=== PATIENT | female | born 1940 | race Caucasian/White ===

== ENCOUNTER 2023-06-07 17:30 | Outpatient (CLI) | payer MEDICARE, BC, SELFPAY | END 2023-06-07 17:31 | disposition home or self-care (01) | LOC: AMB 06-08 09:36 | PROVIDERS: PCP Family Medicine; Visit Provider Family Medicine | DX: R33.9 Retention of urine, unspecified (principal) | CPT/HCPCS: A0425; A0427 ==

== ENCOUNTER 2023-06-07 17:53 | Emergency (ER) | payer MEDICARE, BC, SELFPAY ==
[2023-06-07] VITALS (14 sets, daily range): BP systolic 138–177; BP diastolic 79–127; PULSE 53–99; RESP 16; TEMP 36.7; O2SAT 94–100; BMI 31.6
--- NOTE | 2023-06-07 18:07 | ED.GENADULT ---
HPI - General Adult General Time Seen by Provider: 18:07 Date Seen: 06/07/23 Chief complaint: Urogenital Problems, Female Stated complaint: weak Time Seen by Provider: 06/07/23 17:58 Source: patient, family, EMS, RN notes reviewed and old records reviewed Mode of arrival: EMS Limitations: no limitations History of Present Illness HPI narrative: 83-year-old female who presents today with urinary concerns. Patient notes a couple weeks ago she developed some dysuria, called the clinic and was prescribed Keflex, no urinalysis was done at that time. She has finished her course of antibiotics and now and feels like she can not urinate. Does have sensation of needing to urinate but unable to void. She denies nausea, vomiting, fever, chills. Feels that her abdomen is little distended. No flank pain. Has been having loose stools. Related Data Home Medications Medication Instructions Recorded Confirmed atorvastatin 20 mg tablet 20 mg PO DAILY 11/30/22 06/07/23 metoprolol tartrate 50 mg tablet 50 mg PO BID 11/30/22 06/07/23 omeprazole 20 mg capsule,delayed 20 mg PO DAILY 11/30/22 06/07/23 release oxybutynin chloride 5 mg tablet 5 mg PO BID 11/30/22 06/07/23 Allergies Allergy/AdvReac Type Severity Reaction Status Date / Time No Known Drug Allergies Allergy Verified 06/07/23 18:05 [facility] Medical History (Updated 06/07/23 @ 21:03 by Clarence Bhatti MD) [place] ?L84 - Corns and callosities (ICD-10) Skin infection ?L08.9 - Local infection of the skin and subcutaneous tissue, unspecified (ICD-10) Exam Narrative: Exam Narrative: General: Well-developed and well-nourished, no acute distress Head: Atraumatic and normocephalic Eyes: Pupils are equal reactive, extraocular motions intact, conjunctiva clear ENT: External nose and ears are normal, posterior pharynx without erythema or exudate Neck: No midline cervical tenderness, full spontaneous range of motion the neck, trachea midline, no adenopathy Heart: Regular rate and rhythm no murmurs or thrills Lungs: Clear to auscultation bilaterally without wheezes or crackles Abdomen: Soft, nontender, mildly distended with palpable mass just below the umbilicus Musculoskeletal: No tenderness, deformity, or edema Neurologic: Awake, alert, and oriented x3, no gross focal neurologic deficits, cranial nerves intact as tested Psych: Mood and affect are appropriate Skin: No rashes Const: Vital Signs, click to edit/add: Vital Signs - 24 hr 06/07/23 18:02 06/07/23 20:00 06/07/23 20:43 Temperature 98.0 F Pulse Rate 55 L Pulse Rate [Left P ulse Oximeter] 68 Respiratory Rate 16 Blood Pressure Blood Pressure [Le ft Upper Arm] 138/90 H 150/97 H Pulse Oximetry 94 99 Oxygen Delivery Me thod Room Air 06/07/23 21:00 06/07/23 21:02 06/07/23 21:03 Temperature Pulse Rate 71 53 L 56 L Pulse Rate [Left P ulse Oximeter] Respiratory Rate Blood Pressure 177/79 H Blood Pressure [Le ft Upper Arm] Pulse Oximetry 100 100 100 Oxygen Delivery Me thod 06/07/23 21:30 06/07/23 21:31 06/07/23 22:00 Temperature Pulse Rate 56 L 60 79 Pulse Rate [Left P ulse Oximeter] Respiratory Rate Blood Pressure 173/92 H Blood Pressure [Le ft Upper Arm] Pulse Oximetry 100 99 97 Oxygen Delivery Me thod 06/07/23 22:01 06/07/23 22:07 Temperature Pulse Rate 94 69 Pulse Rate [Left P ulse Oximeter] Respiratory Rate Blood Pressure 164/127 H 163/88 H Blood Pressure [Le ft Upper Arm] Pulse Oximetry 98 95 Oxygen Delivery Me thod Course Course ED Course: Patient seen examined, prior records are reviewed. Patient presents today with concern for decreased urine output. Recently completed Keflex for urinary infection and feels like she can get better. On exam here, afebrile with normal vital signs, no hypotension, tachycardia, or fever to suggest sepsis or severe dehydration. Appears comfortable but does have sensation of bladder fullness and on palpation does have what feels like a palpable bladder almost at the umbilicus. Bedside bladder scan and 102 mL, however based on physical exam and patient description of symptoms, Nazario catheter will be placed. Patient says she is having loose stools and no sensation of rectal fullness to suggest bowel obstruction or fecal impaction. If catheter placement does not relieve symptoms or as minimal urine output and palpable masses still present, CT scan will be ordered. Basic metabolic panel ordered due to concern for possible bladder outlet obstruction and obstructive nephropathy. Reevaluation(s) Time of Reevaluation #1: 19:25 Reevaluation #1: Labs ordered and independently interpreted by me with normal CBC, normal creatinine, urinalysis not consistent with infection. There is trace blood but there was difficulty with catheter insertion and this may be from mild trauma. Unable to insert urinary catheter however patient did void during attempt. CT scan is ordered to evaluate for abdominal mass as well as urinary retention. Time of Reevaluation #2: 20:55 Reevaluation #2: CT abdomen and pelvis and a bili interpreted by me demonstrates large hiatal hernia, numerous stones in the gallbladder, markedly distended bladder without hydronephrosis. Will re-attempt catheter and if unable to pass, plan to transfer for catheter placement. Time of Reevaluation #3: 22:21 Reevaluation #3: Difficult catheter placement but this was successful and patient had a little over 800 mL urine out, previously palpated suprapubic mass is gone. Patient presents with acute urinary retention and recent treatment for urinary tract infection with no urinalysis or urine culture done at that time. Urinalysis here demonstrates small amount of blood and few squamous cells but generally negative, culture will be ordered but would not restart antibiotics based on this sample. Patient admits to urinary frequency. I wonder if she has a component of chronic retention which gives her symptoms. She should follow-up with urology for further evaluation and treatment including postvoid residual and possible cystoscopy. She will follow-up with her primary care doctor next week to have the catheter removed. Vital Signs Vital signs: Initial Vital Signs Temperature 98.0 F 06/07/23 18:02 Temperature Source Temporal Artery Scan 06/07/23 18:02 Pulse Rate 68 06/07/23 18:02 Respiratory Rate 16 06/07/23 18:02 Blood Pressure 138/90 H 06/07/23 18:02 Blood Pressure Mean 106 H 06/07/23 18:02 Blood Pressure Position Sitting 06/07/23 18:02 Pulse Oximetry 94 06/07/23 18:02 Oxygen Delivery Method Room Air 06/07/23 18:02 Vital Signs Temperature 98.0 F 06/07/23 18:02 Pulse Rate 68 06/07/23 18:02 Respiratory Rate 16 06/07/23 18:02 Blood Pressure 138/90 H 06/07/23 18:02 Pulse Oximetry 94 06/07/23 18:02 Oxygen Delivery Method Room Air 06/07/23 18:02 Temperature 98.0 F 06/07/23 18:02 Pulse Rate 69 06/07/23 22:07 Respiratory Rate 16 06/07/23 18:02 Blood Pressure 163/88 H 06/07/23 22:07 Pulse Oximetry 95 06/07/23 22:07 Oxygen Delivery Method Room Air 06/07/23 18:02 Medical Decision Making Lab Data Labs: Lab Results 06/07/23 06/07/23 Range/Units 18:21 18:25 WBC 4.37 L (4.50-11.00) K/uL RBC 4.48 (4.00-5.20) m/uL Hgb 13.2 (12.0-16.0) gm/dL Hct 41.6 (33.0-51.0) % MCV 93 (80-100) fL MCH 30 (26-34) pg MCHC 32 (32-36) gm/dL RDW Coeff of Meir 13.9 (11.5-15.5) % Plt Count 251 (140-440) K/uL Neut % (Auto) 49.9 (42.0-72.0) % Lymph % (Auto) 33.4 (20-44) % [place] % (Auto) 13.5 H (0.0-11.0) % Eos % (Auto) 2.3 (0.0-7.0) % Baso % (Auto) 0.7 (0.0-3.0) % Neut # (Auto) 2.20 (1.7-7.0) K/uL Lymph # (Auto) 1.50 (0.90-2.90) K/uL [place] # (Auto) 0.60 (0.00-0.90) K/UL Eos # (Auto) 0.10 (0.00-0.50) K/uL Baso # (Auto) 0.00 (0.00-0.30) K/uL Abs Immat Gran (auto) 0.00 (0.00-0.30) K/uL Imm/Tot Granulo (auto) 0.2 % Sodium 141 (135-149) mmol/L Potassium 3.5 L (3.6-5.1) mmol/L Chloride 109 (96-114) mmol/L Carbon Dioxide 20 (20-32) mmol/L Anion Gap 12 (7-15) mEq/L BUN 20 (7-30) mg/dL Creatinine 1.2 (0.5-1.5) mg/dL Estimated Creat Clear 26.41 Estimated GFR 45 ml/min Glucose 125 H (60-115) mg/dL Calcium 8.6 (8.4-10.6) mg/dL Magnesium 2.0 (1.5-2.6) mg/dL Urine Color Yellow (Yellow) Urine Appearance Clear (Clear) Urine pH 5.5 (5.0-8.5) Ur Specific [place] 1.010 (1.000-1.030) Urine Protein Negative (Negative) Urine Glucose (UA) Negative (Negative) Urine Ketones Negative (Negative) Urine Blood 2+ A (Negative) Urine Nitrite Negative (Negative) Urine Bilirubin Negative (Negative) Urine Urobilinogen 0.2 (0.2-1.0) Ur Leukocyte Esterase Negative (Negative) Urine RBC 10-25 A (0-2) Urine WBC 2-5 (0-5) Ur Squamous Epith Cells Few (None-Few) Urine Bacteria Few A (None) Discharge Plan Discharge Clinical Impression: Acute urinary retention Patient Disposition: Home, Self-Care Condition: Stable Instructions: Nazario Catheter Placement and Care (ED), Acute Urinary Retention in Women (ED) Additional Instructions: Your urine test today does not demonstrate signs of infection. A urine culture will be done to confirm this and you will be called if this does show bacteria. The catheter that was placed today should be removed by your primary care provider next week. With your acute urinary retention today as well as your reported urinary frequency as an ongoing issue, you may not be completely emptying the bladder when you go to the bathroom. Follow-up with urology for further evaluation, discussed this with her primary care provider as well as she may be able to do more testing prior to seeing the urologist. [facility] ([place] and other [facility] [phone]; [place] [phone]; [place] [phone]) Prescriptions: No Action oxybutynin chloride 5 mg tablet 5 mg PO BID omeprazole 20 mg capsule,delayed release(DR/EC) 20 mg PO DAILY metoprolol tartrate 50 mg tablet 50 mg PO BID atorvastatin 20 mg tablet 20 mg PO DAILY Follow Up/Referrals: Lorena New MD [Primary Care Provider] - Stand Alone Forms: [employer] Info Instructions
[2023-06-07 18:33] LABS: Basophils Percent Auto 0.7 % (0.0-3.0); Eosinophils Percent Auto 2.3 % (0.0-7.0); Hematocrit 41.6 % (33.0-51.0); Hemoglobin* 13.2 gm/dL (12.0-16.0); Immature Granulocytes Pct Auto 0.2 %; Lymphocytes Percent Auto 33.4 % (20-44); Mean Corpuscular HGB Conc 32 gm/dL (32-36); Mean Corpuscular Hemoglobin 30 pg (26-34); Mean Corpuscular Volume 93 fL (80-100); Monocytes Percent Auto 13.5 % (0.0-11.0); Neutrophils Percent Auto 49.9 % (42.0-72.0); Platelet Count* 251 K/uL (140-440); RDW Coefficient of Variation % 13.9 % (11.5-15.5); Red Blood Count 4.48 m/uL (4.00-5.20); White Blood Count* 4.37 K/uL (4.50-11.00)
[2023-06-07 18:38] LABS: Slide Review Reflex No
[2023-06-07 18:46] LABS: Chloride* 109 mmol/L (96-114); Potassium* 3.5 mmol/L (3.6-5.1); Sodium* 141 mmol/L (135-149)
[2023-06-07 18:49] LABS: Anion Gap 12 mEq/L (7-15); Blood Urea Nitrogen* 20 mg/dL (7-30); Calcium* 8.6 mg/dL (8.4-10.6); Carbon Dioxide* 20 mmol/L (20-32); Creatinine* 1.2 mg/dL (0.5-1.5); Est. Creatinine Clearance* 26.41; Estimated Glomerular Filt Rate 45 ml/min; Glucose* 125 mg/dL (60-115)
--- NOTE | 2023-06-07 19:01 | CRLHL7_ITS ---
For Patients: As a result of the Century Cures Act, medical imaging exams and procedure reports are released immediately into your electronic medical record. You may view this report before your referring provider. If you have questions, please contact your health care provider. INDICATION: Lower abdominal pain. TECHNIQUE: CT abdomen and pelvis acquired with 79 cc Isovue 370 IV contrast. COMPARISON: None. FINDINGS: Lower chest: Large hiatal hernia. Liver: Unremarkable. Normal in size and attenuation. No suspicious masses. Gallbladder and bile ducts: Numerous small gallbladder stones. No sign of inflammation and no biliary dilatation. Pancreas: Unremarkable. No mass or inflammation. Spleen: Unremarkable. Normal in size. No masses. Adrenal glands: Unremarkable. No nodules. Kidneys: Bilateral atrophy. Few benign-appearing cysts. No hydronephrosis. GI tract: Unremarkable. Normal in caliber. No sign of mass or inflammation. Normal appendix. Vasculature: Abdominal aorta is normal in caliber. Mesenteric arteries are patent. Lymph nodes: No lymphadenopathy. Peritoneum/Abdominal Wall: Unremarkable. No sign of mass or infiltration. No free air or significant free fluid. Pelvis: Moderately distended urinary bladder. Calcified fibroid is in the uterus. Bones: Unremarkable for age. IMPRESSION: 1. Unremarkable GI tract. 2. Calcified uterine fibroid. 3. Moderately distended urinary bladder. 4. No other acute or specific finding to explain lower abdominal pain. Please note that all CT scans at this facility use dose modulation, iterative reconstruction, and/or weight-based dosing when appropriate to reduce radiation dose to as low as reasonably achievable. Dictated by Joel Huerta MD @ 06/07/2023 9:43:07 PM (Electronically Signed)
[2023-06-07 19:19] LABS: Appearance Urine Clear (Clear); Bilirubin Urine Negative (Negative); Blood Urine 2+ (Negative); Color Urine Yellow (Yellow); Glucose Urine Negative (Negative); Ketones Urine Negative (Negative); Leukocyte Esterase Urine Negative (Negative); Nitrite Urine Negative (Negative); Protein Urine Negative (Negative); Urobilinogen Urine 0.2 (0.2-1.0); pH Urine 5.5 (5.0-8.5)
[2023-06-07 19:28] LABS: Bacteria Urine Few; Squamous Epithelial Cell Urine Few (None-Few)
[2023-06-07] MEDS: lidocaine HCL 2 % JELLY (TOP) STERILE 6 ML UR (22:03)
--- NOTE | 2023-06-07 22:24 | ED.NURSE ---
Per Nurse to nurse report, Catheter insertion was unsuccessful early in the day. [employer] was given verbal order from MD that pt still needed a catheter places. administrative underwriter had nurse from OB come to ED to help. OB nurse was successful on second attempt with the use of a 12 fr. catheter and stylet. pt was given pain control though the use of glydo gel.
--- NOTE | 2023-06-07 22:30 | PC.NURSE ---
Called down to ED to assist in placing urinary catheter after numerous attempts. I attempted once with the 16f and added Lidocaine jelly placed then sterilely switched to a 12f catheter. When inserted into urethra the tube would slide out down towards vaginal canal. Stylet placed into 12f and placed with some effort. After the initial insert there was another tight spot. Talked with patient and asked her how she was doing discomfort rodriguez, she stated to just get it in. Had patient take deep breath and advanced catheter. Balloon inflated with 10cc and stylet removed by primary nurse. Catheter hooked up to the bag with pale yellow urine return into the bag. Small amount of bleeding noted and informed patient of this when complete with the placement.
--- NOTE | 2023-06-07 22:59 | ED.NURSE ---
catheter emptied before discharge 850cc output of yellow clear urine
== END 2023-06-07 23:19 | disposition home or self-care (01) ==
PROVIDERS: Emergency Provider Family Medicine; PCP Family Medicine
DX: R33.9 Retention of urine, unspecified (principal)
CPT/HCPCS: 51702; 36415; 74177; 80048; 81001; 83735; 85025; 87086; 99283; 99284; 99285; Q9967

== ENCOUNTER 2024-01-19 16:25 | Emergency (ER) | payer MEDICARE, BC, SELFPAY ==
[2024-01-19 16:27] VITALS: BP 210/100; PULSE 77; RESP 18; TEMP 36.1; O2SAT 95; BMI 31.2
--- NOTE | 2024-01-19 16:47 | ED_ITS ---
HPI - General Adult General Chief complaint: Urogenital Problems, Female Stated complaint: unable to urinate Time Seen by Provider: 01/19/24 16:26 Source: patient and old records reviewed Mode of arrival: wheelchair Limitations: no limitations History of Present Illness HPI narrative: Patient is an 84-year-old woman here for urinary retention which started this morning. She does have a history of the same, seen here back in June and a catheter was placed with 800 mL of urine output. She says she followed up with a urologist who found a blockage. She says that he did something to kind of open that area, and then recommended a surgery, but she felt like she was doing fine so she canceled the surgery. She has not had any systemic complaints, fevers, chills, vomiting etcetera. She has suprapubic pain since developing urinary retention. Related Data Home Medications ?Medication ?Instructions ?Recorded ?Confirmed atorvastatin 20 mg tablet 20 mg PO DAILY 11/30/22 01/19/24 metoprolol tartrate 50 mg tablet 50 mg PO BID 11/30/22 01/19/24 omeprazole 20 mg capsule,delayed 20 mg PO DAILY 11/30/22 01/19/24 release Allergies Allergy/AdvReac Type Severity Reaction Status Date / Time No Known Drug Allergies Allergy Verified 06/07/23 18:05 Review of Systems Status of ROS: Reports: 10 or more systems reviewed and unremarkable except as noted in History and below [facility] Medical History [place] ?L84 - Corns and callosities (ICD-10) Skin infection ?L08.9 - Local infection of the skin and subcutaneous tissue, unspecified (ICD-10) Social History Smoking Status: Never smoker Do you use any of these nicotine containing products: None How often do you have a drink containing alcohol: never How often do you have six or more drinks on one occasion: Never AUDIT-C Alcohol total score: 0 Non-prescribed substance use: denies use service: No Exam Narrative: Exam Narrative: Vital signs reviewed. Hypertensive, will recheck after draining her bladder. In general, alert, nontoxic woman. She was in wheelchair, was able to transfer to the bed without assistance. She says she likes to do things herself an usually does not even let her daughter help her. Abdomen: Soft, some suprapubic tenderness and a mass is felt there presumably related to retained urine. No rebound guarding or rigidity. Abdomen otherwise nontender. Extremities: Well perfused. Pulses intact. Skin: Warm dry well perfused. Const: Vital Signs, click to edit/add: Vital Signs - 24 hr 01/19/24 16:27 01/19/24 17:36 Temperature 96.9 F L Pulse Rate [Pulse Oximeter] 77 Respiratory Rate 18 Blood Pressure [Ri ght Upper Arm] 210/100 H 184/89 H Pulse Oximetry 95 Oxygen Delivery Me thod Room Air Documenting provider has reviewed patient's vital signs: yes Course Course ED Course: We will place a Nazario here, it appears as if it was fairly difficult place last time. Send UA. No signs of systemic illness at this time. Nazario was placed, she had about 600 mL of urine out. A urinalysis is suggestive of infection, positive nitrites, 10-25 red cells and 10-25 white blood cells. This is sent for culture. I have prescribed cephalexin 500 mg q.i.d. x7 days from [facility]. She has paperwork from the urologist to previously noted they suspected chronic urinary retention, I suspect that with the added insult of urinary tract infection that she is not going to be able to void and I did recommend that we leave the catheter in place for now. She should call Urology she will need follow-up, have recommended that she go forward with the recommended surgery this time. For new symptoms such as fevers, vomiting, flank pain etcetera return to the emergency department. Vital Signs Vital signs: Initial Vital Signs Temperature 96.9 F L 01/19/24 16:27 Temperature Source Temporal Artery Scan 01/19/24 16:27 Pulse Rate 77 01/19/24 16:27 Respiratory Rate 18 01/19/24 16:27 Blood Pressure 210/100 H 01/19/24 16:27 Blood Pressure Mean 136 H 01/19/24 16:27 Blood Pressure Position Sitting 01/19/24 16:27 Pulse Oximetry 95 01/19/24 16:27 Oxygen Delivery Method Room Air 01/19/24 16:27 Vital Signs Temperature 96.9 F L 01/19/24 16:27 Pulse Rate 77 01/19/24 16:27 Respiratory Rate 18 01/19/24 16:27 Blood Pressure 210/100 H 01/19/24 16:27 Pulse Oximetry 95 01/19/24 16:27 Oxygen Delivery Method Room Air 01/19/24 16:27 Temperature 96.9 F L 01/19/24 16:27 Pulse Rate 77 01/19/24 16:27 Respiratory Rate 18 01/19/24 16:27 Blood Pressure 184/89 H 01/19/24 17:36 Pulse Oximetry 95 01/19/24 16:27 Oxygen Delivery Method Room Air 01/19/24 16:27 Medical Decision Making Lab Data Labs: Lab Results 01/19/24 Range/Units 17:15 Urine Color [place] A (Yellow) Urine Appearance Cloudy A (Clear) Urine pH 5.5 (5.0-8.5) Ur Specific [place] 1.015 (1.000-1.030) Urine Protein Trace A (Negative) Urine Glucose (UA) Negative (Negative) Urine Ketones Negative (Negative) Urine Blood 2+ A (Negative) Urine Nitrite Positive A (Negative) Urine Bilirubin Negative (Negative) Urine Urobilinogen 0.2 (0.2-1.0) Ur Leukocyte Esterase Trace A (Negative) Urine RBC 10-25 A (0-2) Urine WBC 10-25 A (0-5) Urine WBC Clumps Few A (None) Ur Squamous Epith Cells Few (None-Few) Amorphous Sediment Moderate A (None) Urine Bacteria Many A (None) Discharge Plan Discharge Clinical Impression: Acute urinary retention, Urinary tract infection Patient Disposition: Home, Self-Care Condition: Improved Instructions: Urinary Tract Infection in Women (DC), Acute Urinary Retention in Women (ED) Additional Instructions: You will need to follow up again with Urology, I would strongly suggest that you proceed with surgery this time to more definitively correct the problem. Your blood pressure was significantly elevated when you arrived, it is somewhat improved now but still high. This should be followed up with primary care in the next week or 2. Prescriptions: No Action omeprazole 20 mg capsule,delayed release(DR/EC) 20 mg PO DAILY metoprolol tartrate 50 mg tablet 50 mg PO BID atorvastatin 20 mg tablet 20 mg PO DAILY Follow Up/Referrals: Lorena New MD [Primary Care Provider] - Stand Alone Forms: [email or web address] Info Instructions
[2024-01-19 17:22] LABS: Appearance Urine Cloudy (Clear); Bilirubin Urine Negative (Negative); Blood Urine 2+ (Negative); Color Urine Orange (Yellow); Glucose Urine Negative (Negative); Ketones Urine Negative (Negative); Leukocyte Esterase Urine Trace (Negative); Nitrite Urine Positive (Negative); Protein Urine Trace (Negative); Specific Gravity Urine 1.015 (1.000-1.030); Urobilinogen Urine 0.2 (0.2-1.0); pH Urine 5.5 (5.0-8.5)
[2024-01-19 17:33] LABS: Amorphous Sediment Urine Moderate; Bacteria Urine Many; Squamous Epithelial Cell Urine Few (None-Few); WBC Clumps Urine Few
[2024-01-19 17:36] VITALS: BP 184/89
== END 2024-01-19 18:16 | disposition home or self-care (01) ==
PROVIDERS: Emergency Provider Emergency Medicine; PCP Family Medicine
DX: N39.0 Urinary tract infection, site not specified (principal); R33.9 Retention of urine, unspecified
CPT/HCPCS: 51702; 81001; 87086; 87186; 99283; 99284

== ENCOUNTER 2024-02-20 07:05 | Emergency (ER) | payer MEDICARE, BC, SELFPAY ==
[2024-02-20 07:15] VITALS: BP 165/110; PULSE 108; RESP 18; TEMP 36.7; O2SAT 98; BMI 27.5
--- NOTE | 2024-02-20 07:24 | ED.FEMALEGU ---
HPI - Female Genitourinary General Time Seen by Provider: 07:25 Date Seen: 02/20/24 Chief complaint: Urogenital Problems, Female Stated complaint: Requesting catheter placement Time Seen by Provider: 02/20/24 07:24 Source: patient, RN notes reviewed and old records reviewed Mode of arrival: ambulatory Limitations: no limitations History of Present Illness HPI Narrative: 84-year-old female with urinary retention, has been seen multiple times in the past for this most recently in January in the setting of urinary tract infection. Today patient says she has been unable to urinate for the last 8 hours. Sensation of bladder fullness. Prior to this did not have any dysuria or hematuria. Does note that she is scheduled to have surgery next month for her recurring urinary retention. Related Data Home Medications ?Medication ?Instructions ?Recorded ?Confirmed atorvastatin 20 mg tablet 20 mg PO DAILY 11/30/22 01/19/24 metoprolol tartrate 50 mg tablet 50 mg PO BID 11/30/22 01/19/24 omeprazole 20 mg capsule,delayed 20 mg PO DAILY 11/30/22 01/19/24 release Previous Rx's ?Medication ?Instructions ?Recorded cefdinir 300 mg capsule 300 mg PO BID #14 caps 02/20/24 Allergies Allergy/AdvReac Type Severity Reaction Status Date / Time No Known Drug Allergies Allergy Verified 06/07/23 18:05 [facility] Medical History [place] ?L84 - Corns and callosities (ICD-10) Skin infection ?L08.9 - Local infection of the skin and subcutaneous tissue, unspecified (ICD-10) Social History Smoking Status: Never smoker Do you use any of these nicotine containing products: None How often do you have a drink containing alcohol: never How often do you have six or more drinks on one occasion: Never AUDIT-C Alcohol total score: 0 Non-prescribed substance use: denies use service: No Exam Narrative: Exam Narrative: General: Well-developed and well-nourished, no acute distress Head: Atraumatic and normocephalic Eyes: Pupils are equal reactive, extraocular motions intact, conjunctiva clear ENT: External nose and ears are normal, posterior pharynx without erythema or exudate Neck: No midline cervical tenderness, full spontaneous range of motion the neck, trachea midline, no adenopathy Heart: Tachycardic rate and rhythm no murmurs or thrills Lungs: Clear to auscultation bilaterally without wheezes or crackles Abdomen: Soft, nontender, nondistended with active bowel sounds Musculoskeletal: No tenderness, deformity, or edema Neurologic: Awake, alert, and oriented x3, no gross focal neurologic deficits, cranial nerves intact as tested Psych: Mood and affect are appropriate Skin: No rashes Const: Vital Signs, click to edit/add: Vital Signs - 24 hr 02/20/24 07:15 Temperature 98.0 F Pulse Rate [Right Pulse Oximeter] 108 H Respiratory Rate 18 Blood Pressure [Ri ght Upper Arm] 165/110 H Pulse Oximetry 98 Course Course ED Course: Patient seen examined, presents today with urinary retention. Catheter has been placed, approximately 600 mL of urine out which appears somewhat concentrated. Basic panel is ordered and as well as urinalysis. Patient patient also noted to be tachycardic, she does have some occasional missed beats. EKG ordered Reevaluation(s) Time of Reevaluation #1: 08:02 Reevaluation #1: Reviewed UA, consistent with UTI, Omnicef for home. Time of Reevaluation #2: 08:10 Reevaluation #2: EKG independently interpreted by me performed at 8:06 a.m. demonstrates atrial fibrillation with RVR rate 106, normal axis, normal intervals, QTC 446, no acute ischemic changes. As patient is relatively well rate controlled today and has follow-up with her primary care provider tomorrow, no further evaluation in the emergency department today, discussed increasing metoprolol. Vital Signs Vital signs: Initial Vital Signs Temperature 98.0 F 02/20/24 07:15 Temperature Source Temporal Artery Scan 02/20/24 07:15 Pulse Rate 108 H 02/20/24 07:15 Respiratory Rate 18 02/20/24 07:15 Blood Pressure 165/110 H 02/20/24 07:15 Blood Pressure Mean 128 H 02/20/24 07:15 Blood Pressure Position Sitting 02/20/24 07:15 Pulse Oximetry 98 02/20/24 07:15 Vital Signs Temperature 98.0 F 02/20/24 07:15 Pulse Rate 108 H 02/20/24 07:15 Respiratory Rate 18 02/20/24 07:15 Blood Pressure 165/110 H 02/20/24 07:15 Pulse Oximetry 98 02/20/24 07:15 Temperature 98.0 F 02/20/24 07:15 Pulse Rate 108 H 02/20/24 07:15 Respiratory Rate 18 02/20/24 07:15 Blood Pressure 165/110 H 02/20/24 07:15 Pulse Oximetry 98 02/20/24 07:15 MDM - Female Genitourinary Lab Data Labs: Lab Results 02/20/24 Range/Units 07:40 Urine Color Yellow (Yellow) Urine Appearance Cloudy A (Clear) Urine pH 5.0 (5.0-8.5) Ur Specific [place] 1.015 (1.000-1.030) Urine Protein 1+ A (Negative) Urine Glucose (UA) Negative (Negative) Urine Ketones Negative (Negative) Urine Blood 3+ A (Negative) Urine Nitrite Positive A (Negative) Urine Bilirubin Negative (Negative) Urine Urobilinogen 0.2 (0.2-1.0) Ur Leukocyte Esterase Trace A (Negative) Urine RBC 50-100 A (0-2) Urine WBC 50-100 A (0-5) Ur Squamous Epith Cells Few (None-Few) Urine Bacteria Many A (None) Discharge Plan Discharge Clinical Impression: Acute urinary retention, Urinary tract infection, Atrial fibrillation Patient Disposition: Home, Self-Care Condition: Stable Instructions: [place] Catheter Placement and Care (ED), How to Change a Catheter Drainage Bag (DC) Activity Level: Activity as Tolerated Discharge Diet: Regular Prescriptions: New cefdinir 300 mg capsule 300 mg PO BID Qty: 14 0RF No Action omeprazole 20 mg capsule,delayed release(DR/EC) 20 mg PO DAILY metoprolol tartrate 50 mg tablet 50 mg PO BID atorvastatin 20 mg tablet 20 mg PO DAILY Follow Up/Referrals: Lorena New MD [Primary Care Provider] - Stand Alone Forms: XDN/[id number] Info Instructions
[2024-02-20 07:48] LABS: Appearance Urine Cloudy (Clear); Bilirubin Urine Negative (Negative); Blood Urine 3+ (Negative); Color Urine Yellow (Yellow); Glucose Urine Negative (Negative); Ketones Urine Negative (Negative); Leukocyte Esterase Urine Trace (Negative); Nitrite Urine Positive (Negative); Protein Urine 1+ (Negative); Specific Gravity Urine 1.015 (1.000-1.030); Urobilinogen Urine 0.2 (0.2-1.0)
[2024-02-20 07:57] LABS: Bacteria Urine Many; RBC Urine 50-100 (0-2); Squamous Epithelial Cell Urine Few (None-Few); WBC Urine 50-100 (0-5)
[2024-02-20 08:06] LABS: Chloride* 104 mmol/L (96-114)
[2024-02-20 08:07] LABS: Sodium* 135 mmol/L (135-149)
[2024-02-20 08:09] LABS: Anion Gap 9 mEq/L (7-15); Carbon Dioxide* 22 mmol/L (20-32); Creatinine* 1.3 mg/dL (0.5-1.5); Est. Creatinine Clearance* 28.81; Estimated Glomerular Filt Rate 41 ml/min
[2024-02-20 08:10] LABS: Blood Urea Nitrogen* 26 mg/dL (7-30); Calcium* 9.1 mg/dL (8.4-10.6); Glucose* 151 mg/dL (60-115)
[2024-02-20 08:32] VITALS: BP 127/89
== END 2024-02-20 08:31 | disposition home or self-care (01) ==
LOC: ED 07:55
PROVIDERS: Emergency Provider Family Medicine; PCP Family Medicine
DX: N39.0 Urinary tract infection, site not specified (principal); I48.91 Unspecified atrial fibrillation
CPT/HCPCS: 51702; 36415; 80048; 81001; 87086; 87186; 93005; 99283; 99284

== ENCOUNTER 2024-07-23 14:18 | Outpatient (CLI) | payer MEDICARE, BC, SELFPAY | END 2024-07-23 14:19 | disposition home or self-care (01) | LOC: AMB 07-24 10:14 | PROVIDERS: PCP Family Medicine; Visit Provider Emergency Medicine | DX: R53.1 Weakness (principal) | CPT/HCPCS: A0425; A0429 ==

== ENCOUNTER 2024-07-23 14:57 | Emergency (ER) | payer MEDICARE, BC, SELFPAY ==
--- OUTSIDE RECORDS SUMMARY | 2024-07-23 14:59 | XMS_ITS | Clinical Summary ---
Author Organization [employer] [facility] Address [address] [place] [id number] Care Team Providers Care Laundry Operator Wash Room Name Role Phone Lorena New MD Primary Care Provide r Rito Segal MD Unavailable [phone] Bruce Mckinley DPM Unavailable [phone] Abel Rios Unavailable Allergies No known active allergies Medications cholecalciferol (VITAMIN D-3) 2,000 unit capsule Take 1 capsule by mouth once daily. 0 2 Active Garlic 1,000 mg cap Take by mouth. 0 0 Active Biotin 5 mg tab Take by mouth. 0 0 Active melatonin 3 mg tablet Take 3 mg by mouth once daily if needed for Sleep. 0 0 Active atorvastatin (LIPITOR) 20 mg tabletIndications:T ype 2 diabetes mellitus without complication, without long-term current use of insulin (HC) Take 1 Tablet (20 mg) by mouth at bedtime. 90 Tablet 2 4 Active WalkerIndications:I mbalance,Tremor Walker with wheels,seat ,hand brakes,and basket for home use. 1 Each 4 Active potassium chloride (KLOR-CON M10) 10 mEq extended-release tablet (part/cryst)Indicat ions:Hypokalemia Take 1 Tablet (10 mEq) by mouth once daily. 90 Tablet 3 4 Active bismuth subsalicylate (PEPTO-BISMOL ORAL) Take by mouth once daily if needed (Heartburn) . Active metoprolol succinate (TOPROL XL) 50 mg sustained-release tabletIndications:C ardiomyopathy, unspecified type (HC) Take 1 Tablet (50 mg) by mouth two times daily. 180 Tablet 3 5 Active apixaban (Eliquis) 5 mg tabletIndications:p revent thromboembolism in chronic atrial fibrillation Take 5 mg twice daily until you see cardiology. 60 Tablet 2 5 Active losartan (COZAAR) 25 mg tabletIndications:C ardiomyopathy, unspecified type (HC) Take 1 Tablet (25 mg) by mouth two times daily. 180 Tablet 3 5 Active omeprazole (PRILOSEC) 20 mg Delayed-Release capsuleIndications: Heartburn Take 1 Capsule (20 mg) by mouth once daily before a meal. 90 Capsule 1 5 Active omeprazole (PRILOSEC) 20 mg Delayed-Release capsuleIndications: Heartburn Take 1 Capsule (20 mg) by mouth once daily before a meal. 90 Capsule 2 4 025 Discontin ued(Reord er (E-cancel not sent)) losartan (COZAAR) 25 mg tabletIndications:C ardiomyopathy, unspecified type (HC) Take 1 Tablet (25 mg) by mouth once daily. 90 Tablet 3 5 025 Discontin ued(*Medi cation adjustmen t) Active Problems Problem Noted Date Diagnosed Date Dysgeusia 10/05/2016 Microscopic colitis 08/15/2012 Overview (12/03/2019): Colonoscopy 08/2012 collagenous colitis, no follow up needed Colonoscopy 11/2019 collagenous colitis, polyp, repeat in 5 years Diabetes mellitus type II 02/24/2010 Overview (07/21/2013): a system change updated this record. This will not affect patient care or billing. This comment can be deleted. CKD (chronic kidney disease) stage 3, GFR 30-59 ml/min 06/28/2009 Hypokalemia 06/28/2009 OA (osteoarthritis) of knee 01/17/2009 Anemia 05/18/2008 Vitamin D deficiency 05/15/2008 Symptomatic menopausal or female climacteric sta sarah 09/22/2007 Esophageal reflux 09/22/2007 Unspecified essential hypertension 09/22/2007 Other and unspecified hyperlipidemia 09/22/2007 Obesity, unspecified 09/22/2007 Dysmetabolic syndrome X 09/22/2007 Urge incontinence 09/22/2007 Resolved Problems Problem Noted Date Diagnosed Date Resolved Date Diabetic ulcer of toe of rig ht foot associated with type 2 diabetes mellitus, limited to breakdown of skin 03/01/2021 08/30/2023 Unspecified hypertensive kid nicole disease with chronic kidney disease stage I through stage IV, or unspecified(403.90) 09/26/2007 06/28/2009 Encounters Date Type Department Care Team Description 07/23/2024 Nurse Triage [facility] [address] [place] [address] Lorena New MD Possible Heart Problem (Walks in to the clinic and shakiness, diaphoretic. Hasn't eaten all day) 07/08/2024 Refill [facility] [address] [place] [address] Lorena New MD Refill Request (Omeprazole (PRILOSEC) 20 mg/) 07/01/2024 Orders Only [facility] [address] [facility] [address] [place] [address] Abbey Candelario PA <No scans attached> 06/30/2024 2:00 PM DISC PAD KNOCKOUT WORKER Office Visit [facility] [address] [place] [address] Abbey Candelario PA Follow Up 06/30/2024 Telephone [facility] [address] [address] [place] [address] Abbey Candelario PA Follow Up (Zio to be mailed to patient) 06/29/2024 1:08 PM DISC PAD KNOCKOUT WORKER - 06/29/2024 11:59 PM DISC PAD KNOCKOUT WORKER Hospital Encounter [facility] [address] [facility] [place] [address] Persistent atrial fibrillation (HC) 06/29/2024 Travel 06/25/2024 Nurse Triage [facility] [address] [place] [address] Lorena New MD Lab 06/05/2024 12:35 PM DISC PAD KNOCKOUT WORKER - 06/05/2024 1:20 PM DISC PAD KNOCKOUT WORKER Surgery [address] [place] [address] Shoshana Altamirano MD MARTINEZ/CARDIOVERSION 06/05/2024 12:04 PM DISC PAD KNOCKOUT WORKER Anesthesia Event [address] [address] Vladimir Reza MD Witte, Brian Frederick, DO 06/05/2024 9:57 AM DISC PAD KNOCKOUT WORKER - 06/05/2024 1:35 PM DISC PAD KNOCKOUT WORKER Hospital Encounter [address] [address] Shoshana Altamirano MD Persistent atrial fibrillation (HC); New onset atrial fibrillation (HC) Discharge Disposition: Home Self Care 06/05/2024 Orders Only [address] [address] Shoshana Altamirano MD <No scans attached> 06/05/2024 Travel 05/28/[address] [address] Shoshana Altamirano MD Pre Procedure 05/28/2024 Telephone [facility] [address] [place] [address] Shoshana Altamirano MD 05/26/[address] [place] [address] Abbey Candelario PA Procedure (Cardioversion) 05/26/2024 Orders Only [address] [place] [address] Case, IDANIA Davis <No scans attached> 05/21/2024 2:00 PM DISC PAD KNOCKOUT WORKER Orders Only [facility] [address] [place] [address] Lab, [facility] Lab 05/21/2024 Travel 05/20/2024 Telephone [facility] [address] [place] [phone] Case, IDANIA Davis Procedure (MARTINEZ/Cardioversion/l ab); Results (Lab drawn yet?) 05/20/2024 Orders Only [facility] [address] [place] [address] Case, IDANIA Davis <No scans attached> 05/18/[address] [address] [place], IDANIA Davis Questions (Eliquis) 05/13/2024 1:30 PM DISC PAD KNOCKOUT WORKER Office Visit [address] [place] [address] Kodak, IDANIA Davis Consult (H & P for Cardioversion/Need to schedule cardioversion after appt /pt states feeling ok today and recently) 05/13/2024 Orders Only [facility] [address] [place] [address] [employer]ak, IDANIA Davis <No scans attached> 05/13/2024 Orders Only [facility] [address] [place] [address] Abbey Candelario PA <No scans attached> 05/13/2024 Travel 05/13/2024 Telephone [facility] [address] [place] [address] Shoshana Altamirano MD Questions 05/12/2024 Telephone [facility] - [address] [address] Shoshana Altamirano MD 05/11/2024 1:00 PM DISC PAD KNOCKOUT WORKER Office Visit [facility] [address] [place] [address] Elsie Mcelroy PA Post-op (2 month; DOS 03/12/24-Cysto, Dilation urethra) 05/11/2024 Travel 05/08/2024 2:00 PM DISC PAD KNOCKOUT WORKER Ancillary Procedure [facility] [address] [place] [address] 05/08/2024 Travel 05/05/2024 5:43 AM DISC PAD KNOCKOUT WORKER - 05/05/2024 11:59 PM DISC PAD KNOCKOUT WORKER Hospital Encounter [facility] [address] [place] [address] Shoshana Altamirano MD 05/04/2024 8:00 AM DISC PAD KNOCKOUT WORKER Nurse/Clinic Staff Only [facility] [address] [place] [address] Device Check (24 HOUR EPATCH DOWNLOAD ) 05/04/2024 Travel 04/30/2024 2:15 PM DISC PAD KNOCKOUT WORKER Nurse/Clinic Staff Only [facility] [address] [place] [address] Device Check (Holter placement) 04/30/2024 Travel from Last 3 Months Immunizations Immunization Administration Dates Next Due AMB Influenza, IIV4 PF (=>6 mos Flulaval,Fluzone Fluarix)(Flu Clinic Only) 05/15/2017 COVID-19 VACCINE SPIKEVAX (M ODERNA 50MCG/0.5ML) 12YO+ PFS 01/23/2024 COVID-19 vaccine ([employer] 30mcg/0.3mL) 12YO+ BIVALENT PF, MDV 08/21/2022 COVID-19 vaccine ([employer] 30mcg/0.3mL) PF, MDV 02/28/2021,07/20/2020,06/29/2020 Influenza A (H1N1), Inactivated 06/16/2009 Influenza A (H1N1), Inactiva ana (Age >=3 Years) 06/16/2009 Influenza, High-dose Inactivated 018,04/26/2016,02/04/2016,2015 Influenza, High-dose Quadriv alent Inactivated 02/20/2023,01/22/2020 Influenza, IIV3 (Age 6-35 mos) 04/05/2011 Influenza, IIV3 (Age >=3 years) 02/04/20 13,01/03/2012,04/05/2011,2009,01/17/2009,04/16/2000 Influenza, Inactivated AIIV4 (Age 65+ Years) Preserv Free 02/28/2021 Influenza, Inactivated IIV3 (Age 65+ Years) Preserv Free 01/23/2024,03/13/2019,08/08/2018 Pneumococcal Conj 20-valent (Prevnar 20) 11/27/2022 Pneumococcal Poly,23-Valent (Pneumovax) 02/24/2010 Pneumococcal conj 13-Valent (Prevnar 13) 06/23/2015 Td (Age >=7 Years) 11/19/1997 Tdap 03/21/2019,09/25/2007 Zoster (Shingrix-RZV, recombinant) 02/20/2023, Family History Medical History Relation Name Comments Cancer Brother 1 lung Cancer Brother 2 leukemia Cancer-colon Mother at 72 Cancer-breast Other Nephew neice Diabetes Sister Relation Name Status Comments Brother 1 Brother 2 Father Mother Other Nephew Alive Leukemia Sister Social History Tobacco Use Types Packs/Day Years Used Date Smoking Tobacco: Former Cigarettes 1 20 0 07/04/1966 - 07/04/1986 Smokeless Tobacco: Never Tobacco Cessation:Counseling Given: Yes Comments:quit in 1986 Alcohol Use Standard Drinks/Week Comments Not Currently 0 (1 standard drink = 0.6 oz pur e alcohol) 1 drink a month PHQ-2 Answer Date Recorded PHQ-2 TOTAL SCORE 0 08/30/2023 Social Connections Answer Date Recorded Do you often feel lonely or isolated from those around you? 0 08/30/2023 Financial Resource Strain Answer Date R ecorded Difficulty of Paying Living Expenses 3 08/30/2023 Difficulty of Paying Living Expenses Not on file 08/30/2023 Food Insecurity Answer Date Recorded Do you worry your food will run out before you are able to buy more? 1 08/30/2023 Transportation Needs Answer Date Record ed Does lack of transportation keep you from medica l appointments? 1 08/30/2023 Does lack of transportation keep you from work, meetings or getting things that you need? 1 08/30/2023 Housing Stability Answer Date Recorded What is your housing situation today? 1 08/30/2023 Utilities Answer Date Recorded Do you have trouble paying f or utilities (for example, heat, electricity, water, phone)? 1 08/30/2023 Comments No Sex and Gender Information Value Date Recorded Sex Assigned at Not on file Legal Sex Female 6:20 AM DISC PAD KNOCKOUT WORKER Gender Identity Not on file Sexual Orientation Not on file Obstetrics History Para Term AB IAB SAB Ectopic Multiple Livin g Live Births 0 0 0 0 0 0 0 0 0 0 Last Filed Vital Signs Vital Sign Reading Time Taken Comments Blood Pressure 117/73 06/30/2024 1:47 PM DISC PAD KNOCKOUT WORKER Pulse 87 06/30/2024 1:47 PM DISC PAD KNOCKOUT WORKER Temperature 35.8 C (96.4 F) 06/05/2024 12:56 PM DISC PAD KNOCKOUT WORKER Respiratory Rate 14 06/05/2024 1:26 PM DISC PAD KNOCKOUT WORKER Oxygen Saturation 97% 06/30/2024 1:47 PM DISC PAD KNOCKOUT WORKER Inhaled Oxygen Concentration - - Weight 74.9 kg (165 lb 1.6 oz) 06/05/2024 10:34 AM DISC PAD KNOCKOUT WORKER Height 152.4 cm (5') 06/05/2024 10:34 AM DISC PAD KNOCKOUT WORKER Body Mass Index 32.24 06/05/2024 10:34 AM DISC PAD KNOCKOUT WORKER Plan of Treatment Upcoming Encounters Date Type Department Care Team (Late st Contact Info) Description 08/25/2024 1:30 PM CDT Office Visit [facility] [address] [place] [address] [place] [address] Katharina [facility] [address] [place] [address] Health Maintenance Due Date Last Done Comments RSV vaccine for adults or (1 - 1-dose 75+ series) 2017 BMI (ht and wt on same day) for age 18+ 02/28/2022 02/28/2021, 11/19/2018, 11/19/2018, Additional history exists COVID-19 vaccine series ( season) 2024 01/23/2024, 08/21/2022, 02/28/2021, Additional history exists Depression screening for age 12+ 08/29/2024 08/30/2023, 08/30/2023, 08/21/2022, Additional history exists Medicare Wellness for age 65+ 08/30/2024, 08/21/2022, 02/28/2021, Additional history exists Tetanus booster 03/21/2029 03/21/2019, 09/04, 11/19/1997 DEXA/DXA scan for age 65+ Completed 09/25/2007 Tdap Completed 03/21/2019, 09/25/2007 Pneumococcal series for age 50+ Completed 11/27/2022, 06/23/2015, 02/24/2010 Zoster (shingles) series for age 50+ Completed 02/20/2023, 11/27/2022 Influenza Vaccine Completed 01/23/2024, , 03/13/2019, Additional history exists Procedures Procedure Name Priority Date/Time Associated Diagnosis Comments BASIC METABOLIC PANEL Today 06/29/2024 1:15 PM DISC PAD KNOCKOUT WORKER Persistent atrial fibrillation (HC) ECHO MARTINEZ WO CONTRAST W COLOR W LTD DOPPLER STAT 06/05/2024 12:52 PM DISC PAD KNOCKOUT WORKER Persistent atrial fibrillation (HC) EKG 12 LEAD Preop 06/05/2024 12:33 PM DISC PAD KNOCKOUT WORKER CARDIOVERSION Class E Urgent 06/05/2024 12:00 PM DISC PAD KNOCKOUT WORKER afib EKG 12 LEAD Routine 06/05/2024 11:51 AM DISC PAD KNOCKOUT WORKER POTASSIUM STAT 06/05/2024 10:56 AM DISC PAD KNOCKOUT WORKER PROTIME-INR KANU 06/05/2024 10:56 AM DISC PAD KNOCKOUT WORKER SCAN-CARDIAC STRIP 06/05/2024 12 :00 AM DISC PAD KNOCKOUT WORKER BASIC METABOLIC PANEL Routine 05/21/2024 1:50 PM DISC PAD KNOCKOUT WORKER Cardiomyopathy, unspecified type (HC) EKG 12 LEAD Routine 05/13/2024 1:31 PM DISC PAD KNOCKOUT WORKER Routine [facility] URINALYSIS MICROSCOPIC Routine 05/11/2024 1:22 PM DISC PAD KNOCKOUT WORKER 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 Incomplete emptying of bladder URINE CULTURE Routine 05/11/2024 1:22 PM DISC PAD KNOCKOUT WORKER 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 Incomplete emptying of bladder UA W/ SEDIMENT EXAM REFLEXED PER CRITERIA Routine 05/11/2024 1:22 PM DISC PAD KNOCKOUT WORKER 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 Incomplete emptying of bladder SCAN-DIAGNOSTIC REPORT 05/11/2024 12:00 AM DISC PAD KNOCKOUT WORKER ECHO TTE COMPLETE W CONTRAST Routine 05/08/2024 3:05 PM DISC PAD KNOCKOUT WORKER New onset atrial fibrillation (HC) Essential hypertension HOLTER MONITOR 24 HOURS Routine 05/05/2024 12:00 AM DISC PAD KNOCKOUT WORKER New onset atrial fibrillation (HC) XR DXA BONE DENSITY 2 SITES AXIAL Routine 09/25/2007 10:53 AM CDT Screening Osteoporosis from Last 3 Months or Most Recently Relevant to Health Maintenance Results * (ABNORMAL) BASIC METABOLIC PANEL (06/29/2024 1:15 PM DISC PAD KNOCKOUT WORKER) Only the most recent of2 resultswithin the time period is included. SODIUM 146(H) 136 - 145 mmol/L 06/29/2024 1:34 PM [facility] POTASSIUM 3.9 3.5 - 5.1 mmol/L 06/29/2024 1:34 PM DISC PAD KNOCKOUT WORKER [facility] CHLORIDE 107 98 - 107 mmol/L 06/29/2024 1:34 PM [facility] CO2,TOTAL 26 22 - 29 mmol/L 06/29/2024 1:34 PM [facility] ANION GAP 13 5 - 18 06/29/2024 1:34 PM [facility] GLUCOSE 113(H) 70 - 99 mg/dL 06/29/2024 1:34 PM [facility] CALCIUM 10.1 8.8 - 10.4 mg/dL 06/29/2024 1:34 PM [facility] Comment: Reference ranges for this test were updated on 03/10/2024 to reflect our healthy population more accurately. Reference range changes are not retroactively applied to results, but previous results using the same methodology can be interpreted in the context of the new reference range. BUN 30(H) 8 - 23 mg/dL 06/29/2024 1:34 PM [facility] CREATININE 1.43(H) 0.50 - 0.90 mg/dL 06/29/2024 1:34 PM [facility] BUN/CREAT RATIO 21(H) 10 - 20 1:34 PM [facility] eGFR 37(L) >90 mL/min/1. 73m2 06/29/2024 1:34 PM [facility] Comment:As of 2021, eG FR is calculated by the CKD-EPI creatinine equation without race adjustment. eGFR can be influenced by muscle mass, exercise, and diet. The reported eGFR is an estimation only and is only applicable if the renal function is stable. Blood BLOOD SPECIMEN / Unknown Venipuncture / Unknown 06/29/2024 1:15 PM DISC PAD KNOCKOUT WORKER 06/29/2024 1:15 PM DISC PAD KNOCKOUT WORKER us Shoshana Altamirano MD CHEMISTRY Final Result [facility] [address] [place] [address] * ECHO MARTINEZ WO CONTRAST W COLOR W LTD DOPPLER (06/05/2024 12:52 PM DISC PAD KNOCKOUT WORKER) EJECTION FRACTION 40 - 45% Anatomical Region Laterality Modality Ultrasound 06/05/2024 11:1 4 AM DISC PAD KNOCKOUT WORKER Narrative 06/05/2024 3:06 PM DISC PAD KNOCKOUT WORKER TRANSESOPHAGEAL ECHOCARDIOGRAM JENNIFER MEYERS : 1940 84 years Study Date: 06/05/2024 11:14:57 AM Gender: F BP: 169/80 mmHg Height: 152.00 cm BSA: 1.72 m Weight: 75.00 kg Tech: CONNIE Referring MD: ABBEY BELLO CASE Site: [facility] Reading Location: [facility] Patient Location: Inpatient. Procedure: MARTINEZ, Color Doppler and Limited Spectral Doppler. Indication for study: Pre DCCV Cardiac Rhythm: Atrial fibrillation.Study quality: Fair. Final Impressions: 1. Normal left ventricular size, moderate decreased global systolic function with an estimated EF of 40 - 45%. 2. Severely enlarged left and right atria. 3. Right ventricular cavity size is mildly enlarged, global systolic RV function is borderline reduced. 4. The mitral valve is normal, mild mitral regurgitation. 5. Decreased left atrial appendage flow velocities. 6. Mild spontaneous echo contrast but no thrombus in the left atrial appendage. Procedure comments: Indications, goals, risks and alternatives of the procedure were discussed with the patient and informed consent was obtained. The patient received sedation of intravenous Propofol . See procedural record for anesthesia details. Prior to performance of procedure, time out was called to accurately identify the patient and procedure. The #1 probe was passed without difficulty. MARTINEZ, Color Doppler and Limited Spectral Doppler was performed. The patient developed no apparent complications during the procedure. Estimated Blood Loss: 0 ml Chamber Sizes and Function Normal left ventricular size, moderate decreased global systolic function with an estimated EF of 40 - 45%. Left atrial size is severely enlarged. The left atrial appendage Mild spontaneous echo contrast but no thrombus in the. Decreased left atrial appendage flow velocities. Right ventricular cavity size is mildly enlarged, global systolic RV function is borderline reduced. The right atrium is severely enlarged. The pulmonary artery is of normal size and origin. The sinus of Valsalva is normal sized. The ascending aorta is normal sized. Aortic arch is normal sized. Descending aorta is normal sized. Valves, RV Pressures and Diastolic Function The aortic valve is normal in structure and trileaflet, no stenosis and trivial regurgitation. The mitral valve is normal in structure, mild mitral regurgitation. The tricuspid valve is normal in structure. Tricuspid regurgitation is trace regurgitation. The pulmonic valve is normal. Trace pulmonary regurgitation. Masses, Effusion, Shunts There is no pericardial effusion. Atrial septum is intact. Agitated saline injection not done. MEASUREMENTS AND CALCULATIONS 2-D Measurements and LV Function: HR 115 bpm . This study was interpreted by an [facility] accredited facility. Final Procedure Note Shoshana Altamirano MD - 06/05/2024 TRANSESOPHAGEAL ECHOCARDIOGRAM JENNIFER MEYERS : 1940 84 years Study Date: 06/05/2024 11:14:57 AM Gender: F BP: 169/80 mmHg Height: 152.00 cm BSA: 1.72 m Weight: 75.00 kg Tech: [facility] Referring MD: ABBEY BELLO CASE Site: [facility] Reading Location: [facility] Patient Location: Inpatient. Procedure: MARTINEZ, Color Doppler and Limited Spectral Doppler. Indication for study: Pre DCCV Cardiac Rhythm: Atrial fibrillation.Study quality: Fair. Final Impressions: 1. Normal left ventricular size, moderate decreased global systolicfunction with an estimated EF of 40 - 45%. 2. Severely enlarged left and right atria. 3. Right ventricular cavity size is mildly enlarged, global systolic RVfunction is borderline reduced. 4. The mitral valve is normal, mild mitral regurgitation. 5. Decreased left atrial appendage flow velocities. 6. Mild spontaneous echo contrast but no thrombus in the left atrialappendage. Procedure comments: Indications, goals, risks and alternatives of theprocedure were discussed with the patient and informed consent wasobtained. The patient received sedation of intravenous Propofol . Seeprocedural record for anesthesia details. Prior to performance ofprocedure, time out was called to accurately identify the patient andprocedure. The #1 probe was passed without difficulty. MARTINEZ, Color Dopplerand Limited Spectral Doppler was performed. The patient developed noapparent complications during the procedure. Estimated Blood Loss: 0 ml Chamber Sizes and Function Normal left ventricular size, moderate decreased global systolic functionwith an estimated EF of 40 - 45%. Left atrial size is severely enlarged.The left atrial appendage Mild spontaneous echo contrast but no thrombusin the. Decreased left atrial appendage flow velocities. Right ventricularcavity size is mildly enlarged, global systolic RV function is borderlinereduced. The right atrium is severely enlarged. The pulmonary artery is ofnormal size and origin. The sinus of Valsalva is normal sized. Theascending aorta is normal sized. Aortic arch is normal sized. Descendingaorta is normal sized. Valves, RV Pressures and Diastolic Function The aortic valve is normal in structure and trileaflet, no stenosis andtrivial regurgitation. The mitral valve is normal in structure, mildmitral regurgitation. The tricuspid valve is normal in structure.Tricuspid regurgitation is trace regurgitation. The pulmonic valve isnormal. Trace pulmonary regurgitation. Masses, Effusion, Shunts There is no pericardial effusion. Atrial septum is intact. Agitated salineinjection not done. MEASUREMENTS AND CALCULATIONS 2-D Measurements and LV Function: HR 115 bpm . This study was interpreted by an [facility] accredited facility. Final us Abbey EMERSON ECHO ORD Final Res ult * EKG 12 LEAD (06/05/2024 12:33 PM DISC PAD KNOCKOUT WORKER) Only the most recent of3 resultswithin the time period is included. Interpretation Atrial fibrillation with rapid ventricular response with premature ventricular or aberrantly conducted complexes Low voltage QRS Poor R progression Abnormal ECG No significant change was found BEYOND NOW Ventricular Rate 108 BPM BEYOND NOW Atrial Rate BPM BEYOND NOW P-R Interval ms BEYOND NOW QRS Duration 66 ms BEYOND NOW QT 362 ms BEYOND NOW QTc 485 ms BEYOND NOW P [place] degrees BEYOND NOW R [place] 99 degrees BEYOND NOW T [place] 28 degrees BEYOND NOW 06/05/2024 12:3 3 PM DISC PAD KNOCKOUT WORKER 06/09/2024 8:42 AM DISC PAD KNOCKOUT WORKER Narrative BEYOND NOW - 06/09/2024 8:42 AM DISC PAD KNOCKOUT WORKER Test Indication: POST us Shoshana Altamirano MD EKG ORD Final Result [facility]OND NOW [place], [place] * Potassium (06/05/2024 10:56 AM DISC PAD KNOCKOUT WORKER) POTASSIUM 4.2 3.5 - 5.1 mmol/L 06/05/2024 11:17 AM DISC PAD KNOCKOUT WORKER [facility] Blood BLOOD SPECIMEN / Unknown IV Start / Unknown 06/05/2024 10:56 AM DISC PAD KNOCKOUT WORKER 06/05/2024 10:58 AM DISC PAD KNOCKOUT WORKER Shoshana Altamirano MD CHEMISTRY Final Result Performing Organization Address [facility] [facility] Co de Phone Number [address] [address] * (ABNORMAL) Protime - INR (06/05/2024 10:56 AM DISC PAD KNOCKOUT WORKER) INR 1.3(H) <1.3 06/05/2024 11:06 AM DISC PAD KNOCKOUT WORKER [facility] PROTIME 15.4(H) 10.6 - 12.4 sec 06/05/2024 11:06 AM DISC PAD KNOCKOUT WORKER [facility] Blood BLOOD SPECIMEN / Unknown IV Start / Unknown 06/05/2024 10:56 AM DISC PAD KNOCKOUT WORKER 06/05/2024 10:58 AM DISC PAD KNOCKOUT WORKER Narrative [facility] - 06/05/2024 11:06 AM DISC PAD KNOCKOUT WORKER Therapeutic Range 2.0-3.0 for most anticoagulated patients 2.5-3.5 or 4.0 for high risk patients The INR is only used for patients on stable oral anticoagulant therapy. It makes no significant contribution to the diagnosis or treatment of patients whose Protime is prolonged for other reasons. INR results are increased when heparin levels exceed 1.0 U/mL, which corresponds to an aPTT >125 seconds if the patient is on UFH. us Shoshana Altamirano MD HEMATOLOGY Final Result Performing Organization Address [facility] Co de Phone Number [address] [phone] * SCAN-CARDIAC STRIP (06/05/2024 12:00 AM DISC PAD KNOCKOUT WORKER) Narrative 06/05/2024 12:00 AM DISC PAD KNOCKOUT WORKER Ordered by an unspecified provider. us Other Clinical Staff OTHER Final Resul t * (ABNORMAL) URINALYSIS MICROSCOPIC (05/11/2024 1:22 PM DISC PAD KNOCKOUT WORKER) RBC 0-2 0-2, None Seen /HPF 05/11/2024 2:11 PM DISC PAD KNOCKOUT WORKER [facility] WBC >100(A) 0-2, 3-5, None Seen /HPF 05/11/2024 2:11 PM DISC PAD KNOCKOUT WORKER [facility] BACTERIA Many(A) None Seen, Rare, Few Bacteria/ HPF 05/11/2024 2:11 PM DISC PAD KNOCKOUT WORKER [facility] EPITHELIAL CELLS Few None Seen, Few Epi/HPF 05/11/2024 2:11 PM DISC PAD KNOCKOUT WORKER [facility] AMORPHOUS Present(A) (none) 05/11/2024 2:11 PM DISC PAD KNOCKOUT WORKER [facility] Urine URINE SPECIMEN / Unknown Non-Blood / Unknown 05/11/2024 1:22 PM DISC PAD KNOCKOUT WORKER 05/11/2024 1:43 PM DISC PAD KNOCKOUT WORKER Elsie EMERSON URINE Final Res ult [facility] [address] [place] [address] * (ABNORMAL) URINE CULTURE (05/11/2024 1:22 PM DISC PAD KNOCKOUT WORKER) CULTURE RESULT(A) 05/14/2024 11:38 AM DISC PAD KNOCKOUT WORKER [facility] CULTURE >100,000 CFU/mL Enterobacter cloacae complex 05/14/2024 11:38 AM DISC PAD KNOCKOUT WORKER [facility] Comment: May develop resistance during prolonged therapy with 3rd-generation cephalosporins as a result of derepression of AmpC beta-lactamase. Therefore, isolates that are initially susceptible may become resistant within 3 to 4 days after initiation of therapy. Testing repeat isolates may be warranted. Oral cephalosporins are also not recommended. Urine URINE SPECIMEN / Unknown Non-Blood / Unknown 05/11/2024 1:22 PM DISC PAD KNOCKOUT WORKER 05/11/2024 1:43 PM DISC PAD KNOCKOUT WORKER Narrative Organism Antibiotic Method Susceptibility Enterobacter cloacae complex TRIMETHOPRIM/SULF <=05/24: S Enterobacter cloacae complex CEFAZOLIN >=32: R Enterobacter cloacae complex GENTAMICIN <=1: S Enterobacter cloacae complex CEFTAZIDIME >=32: R Comment:see organism -specific comment above Enterobacter cloacae complex LEVOFLOXACIN <=0.12: S Enterobacter cloacae complex CIPROFLOXACIN <=0.06: S Enterobacter cloacae complex PIPERACILLIN/TAZO >=128: R Enterobacter cloacae complex CEFEPIME 1: S Enterobacter cloacae complex MEROPENEM <=0.25: S Enterobacter cloacae complex NITROFURANTOIN 32: S us Elsie EMERSON MICROBIOLOGY Final Res ult [facility] [address] [place] [address], [place] * (ABNORMAL) UA W/ SEDIMENT EXAM REFLEXED PER CRITERIA (05/11/2024 1:22 PM DISC PAD KNOCKOUT WORKER) COLOR Yellow Yellow Color 05/11/2024 2:08 PM [facility] CLARITY Turbid(A) Clear Clarity 05/11/2024 2:08 PM [facility] SPECIFIC GRAVITY,URINE >=1.030(A) 1.010, 1.015, 1.020, 1.025 05/11/2024 2:08 PM [facility] PH,URINE 5.5 6.0, 7.0, 8.0, 5.5, 6.5, 7.5, 8.5 05/11/2024 2:08 PM [facility] UROBILINOGEN, QUALITATIVE Normal Normal EU/dl 05/11/2024 2:08 PM [facility] PROTEIN, URINE 100(A) Negative mg/dL 05/11/2024 2:08 PM [facility] GLUCOSE, URINE Negative Negative mg/dL 05/11/2024 2:08 PM [facility] KETONES,URINE Negative Negative mg/dL 05/11/2024 2:08 PM [facility] BILIRUBIN,URI NE Negative Negative 05/11/2024 2:08 PM [facility] OCCULT BLOOD,URINE Small(A) Negative 05/11/2024 2:08 PM DISC PAD KNOCKOUT WORKER [facility] NITRITE Negative Negative 05/11/2024 2:08 PM DISC PAD KNOCKOUT WORKER [facility] LEUKOCYTE ESTERASE Moderate(A) Negative 05/11/2024 2:08 PM DISC PAD KNOCKOUT WORKER [facility] Urine URINE SPECIMEN / Unknown Non-Blood / Unknown 05/11/2024 1:22 PM DISC PAD KNOCKOUT WORKER 05/11/2024 1:43 PM DISC PAD KNOCKOUT WORKER us Elsie EMERSON URINE Final Res ult [facility] [address] [place] [address] * SCAN-DIAGNOSTIC REPORT (05/11/2024 12:00 AM DISC PAD KNOCKOUT WORKER) us Scanner OTHER Final Result * ECHO TTE COMPLETE W CONTRAST (05/08/2024 3:05 PM DISC PAD KNOCKOUT WORKER) EJECTION FRACTION 50 % LVEDD 4.5 cm MITRAL VALVE MR ERO 21 mm2 EJECTION FRACTION 40 - 45% Anatomical Region Laterality Modality Ultrasound 05/08/2024 2:02 PM DISC PAD KNOCKOUT WORKER Narrative 05/08/2024 3:44 PM DISC PAD KNOCKOUT WORKER ECHOCARDIOGRAM JENNIFER MEYERS : 1940 84 years Study Date: 05/08/2024 2:02:24 PM Gender: F BP: 130/88 mmHg Height: 152.00 cm BSA: 1.74 m Weight: 77.00 kg Tech: MSR Referring MD: SHOSHANA ALTAMIRANO Site: [facility] Reading Location: Mobile OP Patient Location: Outpatient. Procedure: 2D w/ Contrast, Color Doppler and Spectral Doppler. Indication for study: New onset atrial fibrillation (HC); Essential hypertension Cardiac Rhythm: Irregular.Study quality: Good. Final Impressions: 1. Normal LV size, normal wall thickness, estimated EF of 40 - 45% 2. Significant mxzt-of-axqk variability in EF due to variable R-R intervals. 3. Normal RV size, moderately reduced systolic function. 4. Severe biatrial enlargment. 5. The mitral valve is normal, moderate central regurgitation. 6. The inferior vena cava is dilated, respiratory size variation less than 50%. 7. Small pericardial effusion. 8. Echo contrast was administered to Contrast used to rule out clots due to irregular rhythm. Chamber Sizes and Function Normal left ventricular size, normal wall thickness, low normal global systolic function with an estimated EF of 40 - 45%. Regional wall motion assessment not well-visualized. Left atrial size is severely enlarged. Right ventricular cavity size is normal, global systolic RV function is moderately reduced. RV wall thickness is normal. The right atrium is severely enlarged. Right atrial volume index is 25 ml/m . Right atrial area is 17 cm . The pulmonary artery is of normal size and origin. The sinus of Valsalva is normal sized. The ascending aorta is normal sized. Valves, RV Pressures and Diastolic Function The aortic valve is normal in structure and trileaflet, no stenosis and no regurgitation. The mitral valve is normal in structure, moderate mitral regurgitation. Indeterminate pattern of LV diastolic filling. The tricuspid valve is normal in structure. Tricuspid regurgitation is trace regurgitation. The pulmonic valve is not well visualized. Trace pulmonary regurgitation. Masses, Effusion, Shunts There is small pericardial effusion. The inferior vena cava is dilated, respiratory size variation less than 50%. Interatrial septum is not well visualized. MEASUREMENTS AND CALCULATIONS 2-D Measurements and LV Function: LVID (d) 4.5 cm LV FS% (2D) 25 % LVID (s) 3.4 cm HR 59 bpm IVS (d) 0.8 cm LA Vol index 52 ml/m2 LVPW (d) 0.9 cm RA Vol index 25 ml/m2 Ao Sinus 3.0 cm RA area 17 cm Asc Ao 3.3 cm RV Max 4C (d) 3.3 cm LA 3.6 cm Mitral Valve: MV Mean G 2 mmHg MR ERO 0.21 cm MV VTI 0.24 m MR Vol. 34 ml MR TVI 1.63 m Contrast documentation: 2ml ml diluted Definity, lot #[id number], [facility]# [id number] was administered peripherally to Contrast used to rule out clots due to irregular rhythm. . This study was interpreted by an [facility] accredited facility. Final Procedure Note Beny Herr MD - 05/08/2024 ECHOCARDIOGRAM JENNIFER MEYERS : 1940 84 years Study Date: 05/08/2024 2:02:24 PM Gender: F BP: 130/88 mmHg Height: 152.00 cm BSA: 1.74 m Weight: 77.00 kg Tech: MSR Referring MD: SHOSHANA ALTAMIRANO Site: [facility] Reading Location: Mobile OP Patient Location: Outpatient. Procedure: 2D w/ Contrast, Color Doppler and Spectral Doppler. Indication for study: New onset atrial fibrillation (HC); Essentialhypertension Cardiac Rhythm: Irregular.Study quality: Good. Final Impressions: 1. Normal LV size, normal wall thickness, estimated EF of 40 - 45% 2. Significant umlz-iq-jkdo variability in EF due to variable R-Rintervals. 3. Normal RV size, moderately reduced systolic function. 4. Severe biatrial enlargment. 5. The mitral valve is normal, moderate central regurgitation. 6. The inferior vena cava is dilated, respiratory size variation lessthan 50%. 7. Small pericardial effusion. 8. Echo contrast was administered to Contrast used to rule out clots dueto irregular rhythm. Chamber Sizes and Function Normal left ventricular size, normal wall thickness, low normal globalsystolic function with an estimated EF of 40 - 45%. Regional wall motionassessment not well-visualized. Left atrial size is severely enlarged.Right ventricular cavity size is normal, global systolic RV function ismoderately reduced. RV wall thickness is normal. The right atrium isseverely enlarged. Right atrial volume index is 25 ml/m . Right atrialarea is 17 cm . The pulmonary artery is of normal size and origin. Thesinus of Valsalva is normal sized. The ascending aorta is normal sized. Valves, RV Pressures and Diastolic Function The aortic valve is normal in structure and trileaflet, no stenosis and noregurgitation. The mitral valve is normal in structure, moderate mitralregurgitation. Indeterminate pattern of LV diastolic filling. Thetricuspid valve is normal in structure. Tricuspid regurgitation is traceregurgitation. The pulmonic valve is not well visualized. Trace pulmonaryregurgitation. Masses, Effusion, Shunts There is small pericardial effusion. The inferior vena cava is dilated,respiratory size variation less than 50%. Interatrial septum is not wellvisualized. MEASUREMENTS AND CALCULATIONS 2-D Measurements and LV Function: LVID (d) 4.5 cm LV FS% (2D) 25 % LVID (s) 3.4 cm HR 59 bpm IVS (d) 0.8 cm LA Vol index 52 ml/m2 LVPW (d) 0.9 cm RA Vol index 25 ml/m2 Ao Sinus 3.0 cm RA area 17 cm Asc Ao 3.3 cm RV Max 4C (d) 3.3 cm LA 3.6 cm Mitral Valve: MV Mean G 2 mmHg MR ERO 0.21 cm MV VTI 0.24 m MR Vol. 34 ml MR TVI 1.63 m Contrast documentation: 2ml ml diluted Definity, lot #[id number], [facility]#[id number] was administered peripherally to Contrast used to rule outclots due to irregular rhythm. . This study was interpreted by an [facility] accredited facility. Final Shoshana Altamirano MD ECHO ORD Final Result * HOLTER MONITOR 24 HOURS (05/05/2024 12:00 AM DISC PAD KNOCKOUT WORKER) Result [facility] Shoshana Altamirano MD CARDIAC SERVICES ORD Edited R esult - Final * XR DEXA BONE DENSITY 2 SITES (09/25/2007 10:53 AM CDT) Anatomical Region Laterality Modality Spine, HIPS, HIPL, HIPR Other 09/25/2007 10:5 3 AM CDT Narrative 09/30/2007 3:16 PM CDT Please see scanned document for results of this study. Procedure Note Cori Tay - 10/03/2007 Please see scanned document for results of this study. oJhanna Petty NP DEXA Final Result from Last 3 Months or Most Recently Relevant to Health Maintenance Insurance [place] PB ONLY MEDICARE PART A HB ONLY MEDICARE PART B HB ONLY [place] HB ONLY Advance Directives * Full Code (Latest Code Status on File) Date Activated Date Inactivated Comments 06/05/2024 10:17 AM 06/05/2024 3:58 PM Question Answer Comments Code Status Discussion: Reviewed Preferences * Full Code Date Activated Date Inactivated Comments 03/12/2024 6:31 AM 03/13/2024 2:33 AM Question Answer Comments Code Status Discussion: Reviewed Preferences Care Teams Laundry Operator Wash Room Relationship Specialty Start Date End Date Lorena New MD [address] [place] [address] PCP - General Family Practice 02/26/11 Rito Segal MD [address] [place] [address] Sports Medicine 05/08/12 Bruce Mckinley, DPM [address] [place] [address] Podiatry 05/08/12 Abel Rios [address] [place] [id number] High Value Associate 05/08/12
[2024-07-23 15:03] VITALS: BP 113/79; PULSE 88; RESP 18; TEMP 36.9; O2SAT 97; BMI 32.4
--- NOTE | 2024-07-23 17:40 | ED.GENADULT ---
HPI - General Adult General Chief complaint: Weakness Stated complaint: weakness Time Seen by Provider: 07/23/24 16:52 History of Present Illness HPI narrative: This 84-year-old female went to a clinic appointment prior to arrival here and had some brief episode of feeling like she could not move or walk. She states that she was rather anxious at the time. She reports that she had similar feelings and symptoms at home prior to going to the clinic today. She states that she usually uses a walker for ambulating and a couple times had to sit down while attempting to get to her car. She states that she was anxious and talked to herself to try to calm down and then she was able to get to her car. While at the clinic for an appointment to place a Zio patch she had similar symptoms. She came here for evaluation and now states that she feels back to normal. She arrives here with normal vital signs. She does have atrial fibrillation and states that she is taking Eliquis and is on a rate controlling medicine. She does not report any headache or pain. Related Data Home Medications ?Medication ?Instructions ?Recorded ?Confirmed atorvastatin 20 mg tablet 20 mg PO DAILY 11/30/22 07/23/24 metoprolol tartrate 50 mg tablet 50 mg PO BID 11/30/22 07/23/24 omeprazole 20 mg capsule,delayed 20 mg PO DAILY 11/30/22 07/23/24 release apixaban 5 mg tablet (Eliquis) 5 mg PO BID 07/23/24 07/23/24 losartan 25 mg tablet 25 mg PO BID 07/23/24 07/23/24 potassium chloride 10 mEq 10 meq PO DAILY 07/23/24 07/23/24 tablet,extended release(part/cryst) Allergies Allergy/AdvReac Type Severity Reaction Status Date / Time No Known Drug Allergies Allergy Verified 07/23/24 15:16 Review of Systems Status of ROS: Reports: 10 or more systems reviewed and unremarkable except as noted in History and below Narrative: Constitutional: No fevers, no weight gain or loss. Eyes: No discharge. No vision changes. HENT: No congestion, no sore throat, no ear pain. Cardiovascular: No chest pain, no palpitations. Respiratory: No shortness of breath, no wheezes, no cough. Gastrointestinal: No abdominal pain, no vomiting, no diarrhea. Genitourinary: No dysuria, no hematuria. Musculoskeletal: Normal range of motion. Skin: No rashes, no pruritis. Neurological: No dizziness, weakness, sensory change, speech change. Endo/Heme/Allergies: No bruising or bleeding. No polydipsia. Pysch: no suicidality, no insomnia. She reports some anxiety symptoms on occasions. All other systems reviewed and are negative. [facility] Medical History [place] ?L84 - Corns and callosities (ICD-10) Skin infection ?L08.9 - Local infection of the skin and subcutaneous tissue, unspecified (ICD-10) Social History Smoking Status: Never smoker Do you use any of these nicotine containing products: None How often do you have a drink containing alcohol: never How often do you have six or more drinks on one occasion: Never AUDIT-C Alcohol total score: 0 Non-prescribed substance use: denies use service: No Exam Narrative: Exam Narrative: Constitutional: Well-developed, well-nourished, no acute distress. HEENT: Normocephalic, atraumatic. Neck: Normal range of motion. Nontender. Supple. Heart: Regular. No murmurs. Normal rate. Intact distal pulses. Lungs: Clear to auscultation. No chest discomfort. No wheezes, rhonchi, or rales. Abdomen: Normal bowel sounds. Nontender. No rebound tenderness. Genitalia: Deferred. Back: No midline tenderness. Normal range of motion. Extremities: Normal range of motion. No injury. Skin: Intact. No rash. Warm. No erythema or pallor. Neurologic: No altered sensation. No weakness. Alert and oriented. No facial asymmetry. Tongue is midline. Ndopwh-uv-deax is normal. No pronator drift. Physical Therapy Attendant strength is equal bilaterally. Able to raise each leg from the bed. Psychiatric: No suicidality. No anxiety or depression. No insomnia. Nursing notes and vitals signs are reviewed. Const: Vital Signs, click to edit/add: Vital Signs - 24 hr 07/23/24 15:03 Temperature 98.4 F Pulse Rate [Right Pulse Oximeter] 88 Respiratory Rate 18 Blood Pressure [Le ft Upper Arm] 113/79 Pulse Oximetry 97 Oxygen Delivery Me thod Room Air Course Vital Signs Vital signs: Initial Vital Signs Temperature 98.4 F 07/23/24 15:03 Temperature Source Temporal Artery Scan 07/23/24 15:03 Pulse Rate 88 07/23/24 15:03 Pulse Rhythm Regular 07/23/24 15:03 Pulse Strength 3+ Normal 07/23/24 15:03 Respiratory Rate 18 07/23/24 15:03 Blood Pressure 113/79 07/23/24 15:03 Blood Pressure Mean 90 07/23/24 15:03 Blood Pressure Position Sitting 07/23/24 15:03 Pulse Oximetry 97 07/23/24 15:03 Oxygen Delivery Method Room Air 07/23/24 15:03 Vital Signs Temperature 98.4 F 07/23/24 15:03 Pulse Rate 88 07/23/24 15:03 Respiratory Rate 18 07/23/24 15:03 Blood Pressure 113/79 07/23/24 15:03 Pulse Oximetry 97 07/23/24 15:03 Oxygen Delivery Method Room Air 07/23/24 15:03 Temperature 98.4 F 07/23/24 15:03 Pulse Rate 88 07/23/24 15:03 Respiratory Rate 18 07/23/24 15:03 Blood Pressure 113/79 07/23/24 15:03 Pulse Oximetry 97 07/23/24 15:03 Oxygen Delivery Method Room Air 07/23/24 15:03 Medical Decision Making MDM Narrative Medical decision making narrative: This patient comes in reporting a couple episodes today where she reports anxiety and maybe even panic type symptoms. During those brief episodes she felt like she could move like she needed to. Since then she has been feeling okay and has been able to ambulate normally. She is in chronic atrial fibrillation and is taking Eliquis and rate controlling medicines. Lab results today all returned with normal findings. The patient feels okay to return home. She was at an appointment to apply a Zio patch and this was done for her here. Lab Data Labs: Lab Results 07/23/24 Range/Units 18:20 WBC 5.08 (4.50-11.00) K/uL RBC 4.79 (4.00-5.20) m/uL Hgb 14.3 (12.0-16.0) gm/dL Hct 44.3 (33.0-51.0) % MCV 93 (80-100) fL MCH 30 (26-34) pg MCHC 32 (32-36) gm/dL RDW Coeff of Meir 14.7 (11.5-15.5) % Plt Count 219 (140-440) K/uL Neut % (Auto) 71.4 (42.0-72.0) % Lymph % (Auto) 19.9 L (20-44) % [place] % (Auto) 7.3 (0.0-11.0) % Eos % (Auto) 0.6 (0.0-7.0) % Baso % (Auto) 0.8 (0.0-3.0) % Neut # (Auto) 3.63 (1.7-7.0) K/uL Lymph # (Auto) 1.00 (0.90-2.90) K/uL [place] # (Auto) 0.40 (0.00-0.90) K/UL Eos # (Auto) 0.03 (0.00-0.50) K/uL Baso # (Auto) 0.04 (0.00-0.30) K/uL Abs Immat Gran (auto) 0.00 (0.00-0.30) K/uL Imm/Tot Granulo (auto) 0.0 % Sodium 140 (135-149) mmol/L Potassium 4.0 (3.6-5.1) mmol/L Chloride 109 (96-114) mmol/L Carbon Dioxide 23 (20-32) mmol/L Anion Gap 8 (7-15) mEq/L BUN 28 (7-30) mg/dL Creatinine 1.3 (0.5-1.5) mg/dL Estimated Creat Clear 23.97 Estimated GFR 41 ml/min Glucose 94 (60-115) mg/dL Calcium 9.5 (8.4-10.6) mg/dL ECG Data Attestation: I personally reviewed and interpreted this ECG as follows: Interpretation: Atrial fibrillation, rate 107 beats per minute. There are no specific ST or T-wave abnormalities. Discharge Plan Discharge Clinical Impression: Anxiety, Atrial fibrillation Patient Disposition: Home, Self-Care Condition: Stable Additional Instructions: Continue current medications and plans. Follow up with MD or return if worsening symptoms occur. Prescriptions: No Action omeprazole 20 mg capsule,delayed release(DR/EC) 20 mg PO DAILY metoprolol tartrate 50 mg tablet 50 mg PO BID atorvastatin 20 mg tablet 20 mg PO DAILY losartan 25 mg tablet 25 mg PO BID potassium chloride 10 mEq tablet,ER particles/crystals 10 meq PO DAILY Eliquis 5 mg tablet 5 mg PO BID Follow Up/Referrals: Lorena New MD [Primary Care Provider] - Stand Alone Forms: Language Learning Class Info Instructions
--- OUTSIDE RECORDS SUMMARY | 2024-07-23 17:49 | XMS_ITS | Clinical Summary ---
Author Organization [employer] Address [address] [place] [id number] Care Team Providers Care Mortgage Loan Funder Name Role Phone Lorena New MD Primary Care Provide r Rito Segal MD Unavailable [phone] Bruce Mckinley DPM Unavailable [phone] Abel Rios Unavailable Allergies No known [...] Department Care Team Description 07/23/2024 Nurse Triage [facility] [address] [place] [address] Lorena New MD Possible Heart Problem (Wheeled into the clinic with walker unable to walk and shakiness, diaphoretic. Hasn't eaten all day) 07/08/2024 Refill [facility] [address] [place] [address] Lorena New MD Refill Request (Omeprazole (PRILOSEC) 20 mg/) 07/01/2024 Orders Only [facility] [address] [facility] [address] [place] [address] Abbey Candelario PA <No scans attached> 06/30/2024 2:00 PM EMT I/99 Office Visit [facility] [place] [facility] [address] [place] [address] Abbey Candelario PA Follow Up 06/30/2024 Telephone [facility] [address] [facility] [address] [place] [address] Abbey Candelario PA Follow Up (Zio to be mailed to patient) 06/29/2024 1:08 PM EMT I/99 - 06/29/2024 11:59 PM EMT I/99 Hospital Encounter [facility] [address] [place] [address] Persistent atrial fibrillation (HC) 06/29/2024 Travel 06/25/2024 Nurse Triage [facility] [address] [place] [address] Lorena New MD Lab 06/05/2024 12:35 PM EMT I/99 - 06/05/2024 1:20 PM EMT I/[address] [address] Shoshana Altamirano MD MARTINEZ/CARDIOVERSION 06/05/2024 12:04 PM EMT I/99 Anesthesia Event [address] [address] Vladimir Reza MD Witte, Brian Frederick, DO 06/05/2024 9:57 AM EMT I/99 - 06/05/2024 1:35 PM EMT I/99 Hospital Encounter [address] [address] Shoshana Altamirano MD Persistent atrial fibrillation (HC); New onset atrial fibrillation (HC) Discharge Disposition: Home Self Care 06/05/2024 Orders Only [address] [address] Shoshana Altamirano MD <No scans attached> 06/05/2024 Travel 05/28/[address] [address] Shoshana Altamirano MD Pre Procedure 05/28/2024 Telephone [facility] [address] [place] [address] Shoshana Altamirano MD 05/26/[address] [place] [address] Abbey Candelario PA Procedure (Cardioversion) 05/26/2024 Orders Only [address] [place] [phone] Case, IDANIA Davis <No scans attached> 05/21/2024 2:00 PM EMT I/99 Orders Only [facility] [address] [place] [address] Lab, [place] Lab 05/21/2024 Travel 05/20/2024 Telephone [facility] [address] [place] [phone] Case, IDANIA Davis Procedure (MARTINEZ/Cardioversion/l ab); Results (Lab drawn yet?) 05/20/2024 Orders Only [facility] Dread [facility] [address] [place] [phone] Case, IDANIA Davis <No scans attached> 05/18/[address] [facility] [address] [place] [address] Case, IDANIA Davis Questions (Eliquis) 05/13/2024 1:30 PM EMT I/99 Office Visit [address] [place] [phone] Kodak, IDANIA Davis Consult (H & P for Cardioversion/Need to schedule cardioversion after appt /pt states feeling ok today and recently) 05/13/2024 Orders Only [facility] [address] [place] [phone] Kodak, IDANIA Davis <No scans attached> 05/13/2024 Orders Only [facility] [address] [place] [phone] Kodak, IDANIA Davis <No scans attached> 05/13/2024 Travel 05/13/[address] [facility] [address] [place] [address] Shoshana Altamirano MD Questions 05/12/2024 Telephone [facility] [address] [place] [address] Shoshana Altamirano MD 05/11/2024 1:00 PM EMT I/99 Office Visit [facility] [address] [place] [address] Elsie Mcelroy PA Post-op (2 month; DOS 03/12/24-Cysto, Dilation urethra) 05/11/2024 Travel 05/08/2024 2:00 PM EMT I/99 Ancillary Procedure [facility] [address] [facility] [address] 05/08/2024 Travel 05/05/2024 5:43 AM EMT I/99 - 05/05/2024 11:59 PM EMT I/99 Hospital Encounter [facility] [address] [place] [address] Shoshana Altamirano MD 05/04/2024 8:00 AM EMT I/99 Nurse/Clinic Staff Only [facility] [address] [place] [address] Device Check (24 HOUR EPATCH DOWNLOAD ) 05/04/2024 Travel 04/30/2024 2:15 PM EMT I/99 Nurse/Clinic Staff Only [facility] [address] [place] [address] Device Check (Holter placement) 04/30/2024 Travel from Last 3 Months Immunizations Immunization Administration Dates Next Due AMB Influenza, IIV4 PF (=>6 mos Flulaval,Fluzone Fluarix)(Flu Clinic Only) 05/15/2017 COVID-19 VACCINE SPIKEVAX (M ODERNA 50MCG/0.5ML) 12YO+ PFS 01/23/2024 COVID-19 vaccine (JumpHawk-Bio NTech 30mcg/0.3mL) 12YO+ BIVALENT PF, MDV 08/21/2022 COVID-19 vaccine (Pfizer-Bio NTech 30mcg/0.3mL) PF, MDV 02/28/2021,07/20/2020,06/29/2020 Influenza A [...] on file Legal Sex Female 6:20 AM EMT I/99 Gender Identity Not on file Sexual Orientation Not on file Obstetrics History Para Term AB IAB SAB Ectopic Multiple Livin g Live Births 0 0 0 0 0 0 0 0 0 0 Last Filed Vital Signs Vital Sign Reading Time Taken Comments Blood Pressure 117/73 06/30/2024 1:47 PM EMT I/99 Pulse 87 06/30/2024 1:47 PM EMT I/99 Temperature 35.8 C (96.4 F) 06/05/2024 12:56 PM EMT I/99 Respiratory Rate 14 06/05/2024 1:26 PM EMT I/99 Oxygen Saturation 97% 06/30/2024 1:47 PM EMT I/99 Inhaled Oxygen Concentration - - Weight 74.9 kg (165 lb 1.6 oz) 06/05/2024 10:34 AM EMT I/99 Height 152.4 cm (5') 06/05/2024 10:34 AM EMT I/99 Body Mass Index 32.24 06/05/2024 10:34 AM EMT I/99 Plan of Treatment Upcoming Encounters Date Type Department Care Team (Late st Contact Info) Description 08/25/2024 1:30 PM CDT Office Visit [facility] [address] [place] [address] [place] [address] [facility] [address] [place] [address] Health Maintenance Due Date Last [...] BASIC METABOLIC PANEL Today 06/29/2024 1:15 PM EMT I/99 Persistent atrial fibrillation (HC) ECHO MARTINEZ WO CONTRAST W COLOR W LTD DOPPLER STAT 06/05/2024 12:52 PM EMT I/99 Persistent atrial fibrillation (HC) EKG 12 LEAD Preop 06/05/2024 12:33 PM EMT I/99 CARDIOVERSION Class E Urgent 06/05/2024 12:00 PM EMT I/99 afib EKG 12 LEAD Routine 06/05/2024 11:51 AM EMT I/99 POTASSIUM STAT 06/05/2024 10:56 AM EMT I/99 PROTIME-INR KANU 06/05/2024 10:56 AM EMT I/99 SCAN-CARDIAC STRIP 06/05/2024 12 :00 AM EMT I/99 BASIC METABOLIC PANEL Routine 05/21/2024 1:50 PM EMT I/99 Cardiomyopathy, unspecified type (HC) EKG 12 LEAD Routine 05/13/2024 1:31 PM EMT I/99 Routine general medical examination at a [facility] URINALYSIS MICROSCOPIC Routine 05/11/2024 1:22 PM EMT I/99 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 Incomplete emptying of bladder URINE CULTURE Routine 05/11/2024 1:22 PM EMT I/99 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 Incomplete emptying of bladder UA W/ SEDIMENT EXAM REFLEXED PER CRITERIA Routine 05/11/2024 1:22 PM EMT I/99 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 SODIUM 146(H) 136 - 145 mmol/L 06/29/2024 1:34 PM [facility] POTASSIUM 3.9 3.5 - 5.1 mmol/L 06/29/2024 1:34 PM [facility] CHLORIDE 107 98 - 107 mmol/L 06/29/2024 1:34 PM [facility] CO2,TOTAL 26 22 - 29 mmol/L 06/29/2024 1:34 PM [facility] ANION GAP 13 5 - 18 06/29/2024 1:34 PM [facility] GLUCOSE 113(H) 70 - 99 mg/dL 06/29/2024 1:34 PM [facility] CALCIUM 10.1 8.8 - 10.4 mg/dL 06/29/2024 1:34 PM [facility] Comment: Reference ranges for this test were updated on 03/10/2024 to reflect our healthy population more accurately. Reference range changes are not retroactively applied to results, but previous results using the same methodology can be interpreted in the context of the new reference range. BUN 30(H) 8 - 23 mg/dL 06/29/2024 1:34 PM [facility] CREATININE 1.43(H) 0.50 - 0.90 mg/dL 06/29/2024 1:34 PM [facility] BUN/CREAT RATIO 21(H) 10 - 20 1:34 PM [facility] eGFR 37(L) >90 mL/min/1. 73m2 06/29/2024 1:34 PM [facility] Comment:As of 2021, eG FR is calculated by the CKD-EPI creatinine equation without race adjustment. eGFR can be influenced by muscle mass, exercise, and diet. The reported eGFR is an estimation only and is only applicable if the renal function is stable. Blood BLOOD SPECIMEN / Unknown Venipuncture / Unknown 06/29/2024 1:15 PM EMT I/99 06/29/2024 1:15 PM EMT I/99 us Shoshana Altamirano MD CHEMISTRY Final Result [facility] [address] [place] [address] * ECHO MARTINEZ WO CONTRAST W COLOR W LTD DOPPLER (06/05/2024 12:52 PM EMT I/99) EJECTION FRACTION 40 - 45% Anatomical Region Laterality Modality Ultrasound 06/05/2024 11:1 4 AM EMT I/99 Narrative 06/05/2024 3:06 PM EMT I/99 TRANSESOPHAGEAL ECHOCARDIOGRAM JENNIFER MEYERS : 1940 84 years Study Date: 06/05/2024 11:14:57 AM Gender: F BP: 169/80 mmHg Height: 152.00 cm BSA: 1.72 m Weight: 75.00 kg Tech: CONNIE Referring MD: ABBEY BELLO CASE Site: [facility] Reading Location: [facility] Patient Location: Inpatient. Procedure: MARTINEZ, [...] . This study was interpreted by an [facility] accredited facility. Final Procedure Note Shoshana Altamirano MD - 06/05/2024 TRANSESOPHAGEAL ECHOCARDIOGRAM JENNIFER MEYERS : 1940 84 years Study Date: 06/05/2024 11:14:57 AM Gender: F BP: 169/80 mmHg Height: 152.00 cm BSA: 1.72 m Weight: 75.00 kg Tech: MAGUE Referring MD: ABBEY BELLO CASE Site: [facility] Reading Location: [facility] Patient Location: Inpatient. Procedure: MARTINEZ, [...] . This study was interpreted by an [facility] accredited facility. Final us Abbey Altagracia Kodak EMERSON ECHO ORD Final Res ult * EKG 12 LEAD (06/05/2024 12:33 PM EMT I/99) Only the most recent of3 resultswithin the [...] NOW QTc 485 ms BEYOND NOW P Clune degrees BEYOND NOW R Clune 99 degrees BEYOND NOW T Clune 28 degrees BEYOND NOW 06/05/2024 12:3 3 PM EMT I/99 06/09/2024 8:42 AM EMT I/99 Narrative [facility] - 06/09/2024 8:42 AM EMT I/99 Test Indication: POST us Shoshana Altamirano MD EKG ORD Final Result [facility] NOW [place], [place] * Potassium (06/05/2024 10:56 AM EMT I/99) POTASSIUM 4.2 3.5 - 5.1 mmol/L 06/05/2024 11:17 AM EMT I/99 [facility] Blood BLOOD SPECIMEN / Unknown IV Start / Unknown 06/05/2024 10:56 AM EMT I/99 06/05/2024 10:58 AM EMT I/99 Shoshana Altamirano MD CHEMISTRY Final Result Performing Organization Address [facility] Co de Phone Number [address] [address] * (ABNORMAL) Protime - INR (06/05/2024 10:56 AM EMT I/99) INR 1.3(H) <1.3 06/05/2024 11:06 AM EMT I/99 [facility] PROTIME 15.4(H) 10.6 - 12.4 sec 06/05/2024 11:06 AM EMT I/99 [facility] Blood BLOOD SPECIMEN / Unknown IV Start / Unknown 06/05/2024 10:56 AM EMT I/99 06/05/2024 10:58 AM EMT I/99 Narrative [facility] - 06/05/2024 11:06 AM EMT I/99 Therapeutic Range 2.0-3.0 for most anticoagulated patients [...] MD HEMATOLOGY Final Result Performing Organization Address [facility] Co de Phone Number [address] [address] * SCAN-CARDIAC STRIP (06/05/2024 12:00 AM EMT I/99) Narrative 06/05/2024 12:00 AM EMT I/99 Ordered by an unspecified provider. us Other Clinical Staff OTHER Final Resul t * (ABNORMAL) URINALYSIS MICROSCOPIC (05/11/2024 1:22 PM EMT I/99) RBC 0-2 0-2, None Seen /HPF 05/11/2024 2:11 PM EMT I/99 [facility] WBC >100(A) 0-2, 3-5, None Seen /HPF 05/11/2024 2:11 PM EMT I/99 [facility] BACTERIA Many(A) None Seen, Rare, Few Bacteria/ HPF 05/11/2024 2:11 PM EMT I/99 [facility] EPITHELIAL CELLS Few None Seen, Few Epi/HPF 05/11/2024 2:11 PM EMT I/99 [facility] AMORPHOUS Present(A) (none) 05/11/2024 2:11 PM EMT I/99 [facility] Urine URINE SPECIMEN / Unknown Non-Blood / Unknown 05/11/2024 1:22 PM EMT I/99 05/11/2024 1:43 PM EMT I/99 Elsie EMERSON URINE Final Res ult [facility] [address] [place] [address] * (ABNORMAL) URINE CULTURE (05/11/2024 1:22 PM EMT I/99) CULTURE RESULT(A) 05/14/2024 11:38 AM EMT I/99 [facility] CULTURE >100,000 CFU/mL Enterobacter cloacae complex 05/14/2024 11:38 AM EMT I/99 [facility] Comment: May develop resistance during prolonged therapy with 3rd-generation cephalosporins as a result of derepression of AmpC beta-lactamase. Therefore, isolates that are initially susceptible may become resistant within 3 to 4 days after initiation of therapy. Testing repeat isolates may be warranted. Oral cephalosporins are also not recommended. Urine URINE SPECIMEN / Unknown Non-Blood / Unknown 05/11/2024 1:22 PM EMT I/99 05/11/2024 1:43 PM EMT I/99 Narrative Organism Antibiotic Method Susceptibility Enterobacter cloacae complex TRIMETHOPRIM/SULF <=1/19: S Enterobacter cloacae complex CEFAZOLIN >=32: R [...] us Elsie EMERSON MICROBIOLOGY Final Res ult [facility] [address] [place] [address], [place] * (ABNORMAL) UA W/ SEDIMENT EXAM REFLEXED PER CRITERIA (05/11/2024 1:22 PM EMT I/99) COLOR Yellow Yellow Color 05/11/2024 2:08 PM [facility] CLARITY Turbid(A) Clear Clarity 05/11/2024 2:08 PM [facility] SPECIFIC GRAVITY,URINE >=1.030(A) 1.010, 1.015, 1.020, 1.025 05/11/2024 2:08 PM [facility] PH,URINE 5.5 6.0, 7.0, 8.0, 5.5, 6.5, 7.5, 8.5 05/11/2024 2:08 PM [facility] UROBILINOGEN, QUALITATIVE Normal Normal EU/dl 05/11/2024 2:08 PM [facility] PROTEIN, URINE 100(A) Negative mg/dL 05/11/2024 2:08 PM [facility] GLUCOSE, URINE Negative Negative mg/dL 05/11/2024 2:08 PM [facility] KETONES,URINE Negative Negative mg/dL 05/11/2024 2:08 PM [facility] BILIRUBIN,URI NE Negative Negative 05/11/2024 2:08 PM [facility] OCCULT BLOOD,URINE Small(A) Negative 05/11/2024 2:08 PM EMT I/99 [facility] NITRITE Negative Negative 05/11/2024 2:08 PM EMT I/99 [facility] LEUKOCYTE ESTERASE Moderate(A) Negative 05/11/2024 2:08 PM EMT I/99 [facility] Urine URINE SPECIMEN / Unknown Non-Blood / Unknown 05/11/2024 1:22 PM EMT I/99 05/11/2024 1:43 PM EMT I/99 us Elsie EMERSON URINE Final Res ult [facility] [address] [place] [address] * SCAN-DIAGNOSTIC REPORT (05/11/2024 12:00 AM EMT I/99) us Scanner OTHER Final Result * ECHO TTE COMPLETE W CONTRAST (05/08/2024 3:05 PM EMT I/99) EJECTION FRACTION 50 % LVEDD 4.5 cm MITRAL VALVE MR ERO 21 mm2 EJECTION FRACTION 40 - 45% Anatomical Region Laterality Modality Ultrasound 05/08/2024 2:02 PM EMT I/99 Narrative 05/08/2024 3:44 PM EMT I/99 ECHOCARDIOGRAM JENNIFER MEYERS : 1940 84 years Study Date: 05/08/2024 2:02:24 PM Gender: F BP: 130/88 mmHg Height: 152.00 cm BSA: 1.74 m Weight: 77.00 kg Tech: MSR Referring MD: SHOSHANA ALTAMIRANO Site: [facility] Reading Location: Mobile OP Patient Location: Outpatient. Procedure: 2D w/ Contrast, Color Doppler and Spectral Doppler. Indication for study: New onset atrial fibrillation (HC); Essential hypertension Cardiac Rhythm: Irregular.Study quality: Good. Final Impressions: 1. Normal LV size, normal wall thickness, estimated EF of 40 - 45% 2. Significant [id number] variability in EF due to variable R-R [...] documentation: 2ml ml diluted Definity, lot #[id number], [facility]# [id number] was administered peripherally to Contrast used to rule out clots due to irregular rhythm. . This study was interpreted by an [facility] accredited facility. Final Procedure Note Beny Herr MD - 05/08/2024 ECHOCARDIOGRAM JENNIFER MEYERS : 1940 84 years Study Date: 05/08/2024 2:02:24 PM Gender: F BP: 130/88 mmHg Height: 152.00 cm BSA: 1.74 m Weight: 77.00 kg Tech: MSR Referring MD: SHOSHANA ALTAMIRANO Site: [facility] Reading Location: Mobile OP Patient Location: Outpatient. Procedure: 2D w/ Contrast, Color Doppler and Spectral Doppler. Indication for study: New onset atrial fibrillation (HC); Essentialhypertension Cardiac Rhythm: Irregular.Study quality: Good. Final Impressions: 1. Normal LV size, normal wall thickness, estimated EF of 40 - 45% 2. Significant vpzt-[id number] variability in EF due to variable R-Rintervals. [...] documentation: 2ml ml diluted Definity, lot #[id number], [facility]#[id number] was administered peripherally to Contrast used to rule outclots due to irregular rhythm. . This study was interpreted by an [facility] accredited facility. Final Shoshana Altamirano MD ECHO ORD Final Result * HOLTER MONITOR 24 HOURS (05/05/2024 12:00 AM EMT I/99) Shoshana Altamirano MD CARDIAC SERVICES ORD Edited [...] scanned document for results of this study. Johanna Petty NP DEXA Final Result from Last 3 Months or Most Recently Relevant to Health Maintenance Insurance [employer] BLUE MR PB ONLY MEDICARE PART A HB ONLY MEDICARE PART B HB ONLY [employer] BLUE HB ONLY Advance Directives * Full Code (Latest Code Status on File) Date Activated Date Inactivated Comments 06/05/2024 10:17 AM 06/05/2024 3:58 PM Question Answer Comments Code Status Discussion: Reviewed Preferences * Full Code Date Activated Date Inactivated Comments 03/12/2024 6:31 AM 03/13/2024 2:33 AM Question Answer Comments Code Status Discussion: Reviewed Preferences Care Teams Mortgage Loan Funder Relationship Specialty Start Date End Date Lorena New MD [address] [place] [address] PCP - General Family Practice 02/26/11 Rito Segal MD [address] [place] [address] Sports Medicine 05/08/12 Bruce Mckinley, DPM [address] [place] [address] Podiatry 05/08/12 Abel Rios [address] [place] [address] Tooth Inspector 05/08/12
[2024-07-23 18:31] LABS: Basophils Absolute Auto 0.04 K/uL (0.00-0.30); Basophils Percent Auto 0.8 % (0.0-3.0); Eosinophils Absolute Auto 0.03 K/uL (0.00-0.50); Eosinophils Percent Auto 0.6 % (0.0-7.0); Hematocrit 44.3 % (33.0-51.0); Hemoglobin* 14.3 gm/dL (12.0-16.0); Lymphocytes Percent Auto 19.9 % (20-44); Mean Corpuscular HGB Conc 32 gm/dL (32-36); Mean Corpuscular Hemoglobin 30 pg (26-34); Mean Corpuscular Volume 93 fL (80-100); Monocytes Percent Auto 7.3 % (0.0-11.0); Neutrophils Absolute Auto 3.63 K/uL (1.7-7.0); Neutrophils Percent Auto 71.4 % (42.0-72.0); Platelet Count* 219 K/uL (140-440); RDW Coefficient of Variation % 14.7 % (11.5-15.5); Red Blood Count 4.79 m/uL (4.00-5.20); White Blood Count* 5.08 K/uL (4.50-11.00)
[2024-07-23 18:37] LABS: Slide Review Reflex No
[2024-07-23 18:42] LABS: Chloride* 109 mmol/L (96-114); Sodium* 140 mmol/L (135-149)
[2024-07-23 18:45] LABS: Blood Urea Nitrogen* 28 mg/dL (7-30); Calcium* 9.5 mg/dL (8.4-10.6); Carbon Dioxide* 23 mmol/L (20-32); Creatinine* 1.3 mg/dL (0.5-1.5); Est. Creatinine Clearance* 23.97; Estimated Glomerular Filt Rate 41 ml/min; Glucose* 94 mg/dL (60-115)
[2024-07-23 18:46] LABS: Anion Gap 8 mEq/L (7-15)
== END 2024-07-23 19:41 | disposition home or self-care (01) ==
PROVIDERS: Emergency Provider Emergency Medicine Emergency Medical Services; PCP Family Medicine
DX: F41.9 Anxiety disorder, unspecified (principal); I48.20 Chronic atrial fibrillation, unspecified
CPT/HCPCS: 36415; 80048; 85025; 99284